=== PATIENT | female | born 1955 | race American Indian/Alaskan Native ===

== ENCOUNTER 2017-09-27 18:12 | Inpatient (IN) | payer SELFPAY ==
[2017-09-27] MEDS ORDERED: NACL 0.9% 500 ML 500 ML IV ONE (18:21)
[2017-09-27] MEDS ORDERED: NACL 0.9% 1000 ML IV ONE (18:25)
[2017-09-27] MEDS ORDERED: TYLENOL PO ONE (18:25)
[2017-09-27 18:50] LABS: Hemoglobin 13.6 gm/dl (10.1-14.3); Mean Corpuscular HGB Conc 33 % (30-34); Mean Corpuscular Hemoglobin 28 pg (28-32); Mean Corpuscular Volume 84 fl (79-97); Platelet Count 109 K/mm3 (140-440); Red Blood Count 4.87 M/mm3 (3.65-5.03); Red Cell Distribution Width 14.1 % (13.2-15.2)
--- NOTE | 2017-09-27 18:51 | Emergency Department Report ---
ED Fever HPI - General Chief Complaint: Fever Stated Complaint: DEHYDRATION Time Seen by Provider: 09/27/17 18:24 Source: patient, old records (no previous [employer] record) Exam Limitations: no limitations - History of Present Illness Initial Comments: 61-year-old female with no significant past medical present to the hospital complaining of fever, generalized weakness and fatigue, shortness of breath, and tired feeling since yesterday. Symptoms started after sleeping in her belly Burner overnight. Patient denies headache, sore throat, neck pain, cough , abdominal pain, nausea, vomiting, diarrhea, or dysuria. Patient states she's been drinking lots of electrolytes and cough even though her appetite has been decreased. She presents with fever, Tachycardia, and hypotension. Pt has a [facility]D in [facility] ED Review of Systems ROS: Stated complaint: DEHYDRATION Other details as noted in HPI Comment: All other systems reviewed and negative ED Past Medical Hx - Past Medical History Previous Medical History?: No - Surgical History Past Surgical History?: No - Social History Smoking Status: Never Smoker Substance Use Type: None ED Physical Exam - General Limitations: No Limitations - Other Other exam information: General: No limitations, patient is alert in no acute distress Head exam: Atraumatic, normocephalic Eyes exam: Normal appearance, pupils equal reactive to light, extraocular movements intact ENT: Dry mucous membranes Neck exam: Normal inspection, full range of motion, no meningismus nontender, no goiter/thyromegaly Respiratory exam: Clear to auscultation bilateral, no wheezes, rales, crackles Cardiovascular: Tachycardic regular rhythm Abdomen: Soft, nondistended, and nontender, with normal bowel sounds, no rebound, or guarding Extremity: Full range of motion normal inspection no deformity Back: Normal Inspection, full range of motion, no tenderness Neurologic: Alert, oriented x3, cranial nerves intact, no motor or sensory deficit Psychiatric: normal affect, normal mood Skin: Warm, dry, intact ED Course Vital Signs 09/27/17 09/27/17 09/27/17 18:17 19:20 19:40 Temperature 103.1 F H 102.1 F H Pulse Rate 131 H 106 H Respiratory 16 28 H 20 Rate Blood Pressure 78/62 Blood Pressure 96/38 [Left] O2 Sat by Pulse 97 96 Oximetry 09/27/17 09/27/17 09/27/17 19:50 20:01 21:12 Temperature 101 F H 99.4 F Pulse Rate 96 H 97 H 90 Respiratory 16 16 16 Rate Blood Pressure Blood Pressure 88/35 103/40 86/38 [Left] O2 Sat by Pulse 99 99 98 Oximetry 09/27/17 09/27/17 21:20 21:29 Temperature Pulse Rate 93 H Respiratory 20 20 Rate Blood Pressure Blood Pressure 94/42 [Left] O2 Sat by Pulse 97 Oximetry - Reevaluation(s) Reevaluation #1: 09/27/17 20:32 pt reports feeling better with ed treatment - Consultations Consultation #1: 09/27/17 19:54 case d/w Dr Sachin pereira, will consult ED Medical Decision Making - Lab Data Result diagrams: 09/27/17 18:29 09/27/17 18:29 - EKG Data -: EKG Interpreted by Nc EKG shows normal: sinus rhythm, axis (qrs 63), QRS complexes (qrsd 106), ST-T waves (no stemi) Rate: tachycardia (107) - EKG Data When compared to previous EKG there are: previous EKG unavailable - Radiology Data Radiology results: report reviewed FINAL REPORT EXAM: XR CHEST 1V AP HISTORY: possible Sepsis TECHNIQUE: AP portable view of the chest PRIORS: None. FINDINGS: Lines, tubes, and devices: N/A Lungs and pleura: Trachea is normal in position. Lungs are clear of infiltrate, pleural effusion, vascular congestion, or pneumothorax. Cardiomediastinal silhouette: Cardiac and mediastinal silhouettes are unremarkable. Other: Bony structures are intact. IMPRESSION: No acute cardiopulmonary process seen. - Medical Decision Making fever + uti. zosyn given. blood and urine cultures pending + sepsis, inc lactic acid, normal ph, low bicarb pt received 30ml/kg bolus of NS addition NS ordered improving hr, bp, and decreasing temp renal failure previous unknown, no previous hx Nephro consulted hypokalemia/hypomagnesemia supplementation ordered elevated ck IVF initiated dehydration likely cause thrombocytopenia previous value unavailable sepsis could be cause elevated coags ? sepsis' mild ast elevation pt to be admitted to the hospitalist service - Differential Diagnosis dehydration, viral syndrome, hyperthyroidism, infection, sepsis Critical Care Time: No Critical care attestation.: If time is entered above; I have spent that time in minutes in the direct care of this critically ill patient, excluding procedure time. ED Disposition Clinical Impression: Sepsis, UTI (urinary tract infection), Acute renal insufficiency, Lactic acid acidosis, Hypokalemia, Hypomagnesemia, Elevated CK, Thrombocytopenia, Coagulopathy Disposition: OP ADMIT IP TO THIS HOSP Is pt being admited?: Yes Condition: Stable Time of Disposition: 21:15 (Dr Vergara/[facility])
[2017-09-27 18:56] LABS: INR 1.31 (0.87-1.13)
[2017-09-27 19:04] LABS: Albumin 3.5 g/dL (3.9-5); Calcium 8.5 mg/dL (8.4-10.2)
--- NOTE | 2017-09-27 19:08 | XRay Report ---
FINAL REPORT EXAM: XR CHEST 1V AP HISTORY: possible Sepsis TECHNIQUE: AP portable view of the chest PRIORS: None. FINDINGS: Lines, tubes, and devices: N/A Lungs and pleura: Trachea is normal in position. Lungs are clear of infiltrate, pleural effusion, vascular congestion, or pneumothorax. Cardiomediastinal silhouette: Cardiac and mediastinal silhouettes are unremarkable. Other: Bony structures are intact. IMPRESSION: No acute cardiopulmonary process seen.
[2017-09-27 19:11] LABS: Free T4 (Free Thyroxine) 1.1 ng/dL (0.76-1.46)
[2017-09-27 19:26] LABS: Amorphous Crystals,Urine Few; Bacteria,Urine 4+ /HPF (Negative); Bilirubin,Urine NEG (Negative); Blood,Urine LG (Negative); Color,Urine Amber (Yellow); Mucus,Urine 3+ /HPF
[2017-09-27 19:29] LABS: Amphetamine Screen,Urine PRESUMPTIVE NEGATIVE; Benzodiazepines Screen,Urine PRESUMPTIVE NEGATIVE; Cannabinoid Screen,Urine PRESUMPTIVE NEGATIVE; Cocaine Screen,Urine PRESUMPTIVE NEGATIVE; Methadone Screen,Urine PRESUMPTIVE NEGATIVE; Opiate Screen,Urine PRESUMPTIVE NEGATIVE
[2017-09-27 19:36] LABS: WBC,Urine > 182.0 /HPF (0.0-6.0)
[2017-09-27] MEDS ORDERED: K-DUR PO ONE (19:49)
[2017-09-27] MEDS ORDERED: MAGNESIUM SULFATE 2GM/50ML 2 GM/50 ML BAG IV ONE (19:49)
[2017-09-27] MEDS ORDERED: NACL 0.9% 1000 ML 1,000 ML IV ONE ×4 (19:53→21:53)
[2017-09-27] MEDS ORDERED: ZOSYN/NS 4.5GM/100ML 4.5 GM/100 ML VIAL IV SCH (20:00)
[2017-09-27 20:05] LABS: Band Neutrophils # (Manual) 2.7 K/mm3; Basophils % (Manual) 0 % (0.0-1.8); Eosinophils % (Manual) 0 % (0.0-4.3); Monocytes % (Manual) 0 % (0.0-7.3); Total Cells Counted 100
[2017-09-27 20:06] LABS: Giant Platelets Few; Ovalocytes Few; Platelet Estimate Consistent w Auto
[2017-09-27] MEDS ORDERED: MOTRIN PO ONE (21:07)
[2017-09-27] MEDS ORDERED: ZOFRAN IV PRN (21:50)
[2017-09-27] MEDS ORDERED: SODIUM CHLORIDE FLUSH SYRINGE 10 ML IV PRN (21:50)
--- NOTE | 2017-09-27 22:01 | History and Physical Report ---
History of Present Illness Date of examination: 09/27/17 History of present illness: 61-year-old woman with no medical history come to the emergency room with complaint of feeling fatigue, decrease energy, fever, nausea vomiting that started on . She has urinary frequency, no dysuria, herbal supplements , NSAID use Review of systems Constitutional: no weight loss, chills, fever Ears, eyes, nose, mouth and throat: no nasal congestion, no nasal discharge, no sinus pressure, no vision change, no red eye. Neck: No neck pain or rigidity. Cardiovascular: no chest pain, palpitations Respiratory: no cough, shortness of breath Gastrointestinal: no abdominal pain hematochezia Genitourinary : no hematuria Musculoskeletal: no joint swelling or muscle ache Integumentary: no rash, no pruritis Neurological: no parathesias, , no focal weakness Endocrine: no cold or heat intolerance, no polyuria or polydipsia Hematologic/Lymphatic: no easy bruising, no easy bleeding, no gland swelling Allergic/Immunologic: no urticaria, no angioedema. PAST MEDICAL HISTORY: None PAST SURGICAL HISTORY: None SOCIAL HISTORY: No alcohol, no drugs, tobacco FAMILY HISTORY: Hypertension Medications and Allergies Allergies Allergy/AdvReac Type Severity Reaction Status Date / Time No Known Allergies Allergy Unverified 09/27/17 18:21 Home Medications Medication Instructions Recorded Confirmed Last Taken Type No Known Home Medications [No 09/27/17 09/27/17 Unknown History Reported Home Medications] Active Meds: Active Medications Acetaminophen (Tylenol) 650 mg PO Q4H PRN PRN Reason: Pain MILD(1-3)/Fever >100.5/LUIS Enoxaparin Sodium (Lovenox) 30 mg SUB-Q QDAY JESSICA Piperacillin Sod/Tazobactam Sod (Zosyn/Ns 4.5gm/100ml) 4.5 gm in 100 mls @ 200 mls/hr IV ONCE JESSICA Stop: 09/27/17 22:00 Last Admin: 09/27/17 19:47 Dose: 200 mls/hr Sodium Chloride (Nacl 0.9% 1000 Ml) 1,000 mls @ 999 mls/hr IV BOLUS ONE Stop: 09/27/17 22:18 Last Admin: 09/27/17 21:28 Dose: 999 mls/hr Sodium Chloride (Nacl 0.9% 1000 Ml) 1,000 mls @ 999 mls/hr IV BOLUS ONE Stop: 09/27/17 22:50 Ceftriaxone Sodium (Rocephin/Ns 1 Gm/50 Ml) 1 gm in 50 mls @ 100 mls/hr IV Q24H [facility]; Protocol Exam - Physical Exam Narrative exam: Gen. appearance: Patient lying in bed, no apparent distress HEENT: Normocephalic, atraumatic, pupils equally round and reactive to light, extraocular movement intact, and no sclericterus,. No JVD or thyromegaly or nodule,neck supple, no carotid bruit ,mucous membranes moist, no exudate or erythema Heart: S1, S2, regular rate and rhythm Lungs: Clear bilaterally, breathing comfortable Abdomen: Positive bowel sounds, non-tender, nondistended, no organomegaly Extremity:no edema cyanosis, clubbing Skin: no rash, dry, warm Neuro: Oriented 3, cranial nerves II-12 intact, speech is fluent, motor and sensory intact - Constitutional Vitals: Temp Pulse Resp BP Pulse Ox 99.4 F 93 H 20 95/43 98 09/27/17 21:12 09/27/17 21:29 09/27/17 21:52 09/27/17 21:40 09/27/17 21:52 Results - Labs CBC & Chem 7: 09/27/17 18:29 09/27/17 18:29 Labs: Abnormal lab results 09/27/17 09/27/17 09/27/17 Range/Units 18:29 18:29 18:29 Plt Count 109 L (140-440) K/mm3 Lymphocytes % (Manual) 1.0 L (13.4-35.0) % Lymphocytes # (Manual) 0.1 L (1.2-5.4) K/mm3 PT 17.0 H (12.2-14.9) Sec. INR 1.31 H (0.87-1.13) APTT (24.2-36.6) Sec. Sodium 135 L (137-145) mmol/L Potassium 3.3 L (3.6-5.0) mmol/L Chloride 95.9 L (98-107) mmol/L Carbon Dioxide 19 L (22-30) mmol/L BUN 43 H (7-17) mg/dL Creatinine 4.1 H (0.7-1.2) mg/dL Glucose 151 H (65-100) mg/dL POC Glucose (70-105) Lactic Acid (0.7-2.0) mmol/L Magnesium (1.7-2.3) mg/dL AST 54 H (5-40) units/L Total Creatine Kinase (30-135) units/L Albumin 3.5 L (3.9-5) g/dL Urine WBC (Auto) (0.0-6.0) /HPF U Epithel Cells (Auto) (0-13.0) /HPF 09/27/17 09/27/17 09/27/17 Range/Units 18:29 18:29 18:29 Plt Count (140-440) K/mm3 Lymphocytes % (Manual) (13.4-35.0) % Lymphocytes # (Manual) (1.2-5.4) K/mm3 PT (12.2-14.9) Sec. INR (0.87-1.13) APTT (24.2-36.6) Sec. Sodium (137-145) mmol/L Potassium (3.6-5.0) mmol/L Chloride (98-107) mmol/L Carbon Dioxide (22-30) mmol/L BUN (7-17) mg/dL Creatinine (0.7-1.2) mg/dL Glucose (65-100) mg/dL POC Glucose (70-105) Lactic Acid 4.60 H* (0.7-2.0) mmol/L Magnesium 1.50 L (1.7-2.3) mg/dL AST (5-40) units/L Total Creatine Kinase 1335 H (30-135) units/L Albumin (3.9-5) g/dL Urine WBC (Auto) (0.0-6.0) /HPF U Epithel Cells (Auto) (0-13.0) /HPF 09/27/17 09/27/17 09/27/17 Range/Units 18:29 18:37 19:11 Plt Count (140-440) K/mm3 Lymphocytes % (Manual) (13.4-35.0) % Lymphocytes # (Manual) (1.2-5.4) K/mm3 PT (12.2-14.9) Sec. INR (0.87-1.13) APTT 38.1 H (24.2-36.6) Sec. Sodium (137-145) mmol/L Potassium (3.6-5.0) mmol/L Chloride (98-107) mmol/L Carbon Dioxide (22-30) mmol/L BUN (7-17) mg/dL Creatinine (0.7-1.2) mg/dL Glucose (65-100) mg/dL POC Glucose 164 H (70-105) Lactic Acid (0.7-2.0) mmol/L Magnesium (1.7-2.3) mg/dL AST (5-40) units/L Total Creatine Kinase (30-135) units/L Albumin (3.9-5) g/dL Urine WBC (Auto) > 182.0 H (0.0-6.0) /HPF U Epithel Cells (Auto) 18.0 H (0-13.0) /HPF - Imaging and Cardiology EKG: image reviewed Chest x-ray: report reviewed Assessment and Plan Assessment Sepsis UTI acute renal failure Thrombocytopenia Plan Admit to medicine Start IV fluid, IV Rocephin, follow cultures Check ultrasound of the kidneys, consult renal DVT prophylaxis
[2017-09-27] MEDS: SODIUM CHLORIDE FLUSH SYRINGE 10 ML IV SCH (22:13)
--- NOTE | 2017-09-27 23:36 | Ultrasound Report ---
FINAL REPORT PROCEDURE: US RENAL BILAT TECHNIQUE: Real-time sonography in multiple planes of the kidneys, ureters and urinary bladder was performed with image documentation. CPT 49232 HISTORY: arf COMPARISON: No prior studies are available for comparison. FINDINGS: RIGHT kidney: Renal parenchymal echotexture is within normal limits. There is mild degree hydronephrosis. No renal calculi are noted.. Length: 13 x 5 x 6 cm. LEFT kidney: Normal echotexture. No focal renal mass, calculus, or hydronephrosis. Length: 13 x 5 x 4cm. Bladder: Normal. IMPRESSION: Mild degree right hydronephrosis is noted..
[2017-09-27] MEDS: NACL 0.9% 1000 ML 1,000 ML IV SCH (23:49)
[2017-09-28] MEDS: TYLENOL PO PRN ×2 (01:29→16:53)
[2017-09-28 07:31] LABS: Hemoglobin 11.7 gm/dl (10.1-14.3); Mean Corpuscular HGB Conc 33 % (30-34); Mean Corpuscular Hemoglobin 28 pg (28-32); Mean Corpuscular Volume 86 fl (79-97); Red Blood Count 4.18 M/mm3 (3.65-5.03); Red Cell Distribution Width 14.6 % (13.2-15.2)
[2017-09-28 07:52] LABS: Platelet Count 70 K/mm3 (140-440)
[2017-09-28 07:55] LABS: Calcium 7.2 mg/dL (8.4-10.2)
--- NOTE | 2017-09-28 08:56 | Consultation ---
History of Present Illness - Reason for Consult Consult date: 09/28/17 acute renal failure - History of Present Illness Mrs. Whalen is a 61-year-old female who presented to the ED with complaint of fever, generalized weakness. She denies nausea, vomiting, diarrhea, cough. Upon arrival to the ED, patient was febrile 103.1 to and hypotensive w/ SBP 70- 90s. Labs were notable for SCr 4.1, lactic acid 4.6. Nephrology consultation requested re: management of RADHA. She denies a prior hx of kidney disease. She denies hematuria, epistaxis, hemoptysis and NSAID use. Medications and Allergies Allergies Allergy/AdvReac Type Severity Reaction Status Date / Time No Known Allergies Allergy Unverified 09/27/17 18:21 Home Medications Medication Instructions Recorded Confirmed Last Taken Type No Known Home Medications [No 09/27/17 09/27/17 Unknown History Reported Home Medications] Active Meds: Active Medications Acetaminophen (Tylenol) 650 mg PO Q4H PRN PRN Reason: Pain MILD(1-3)/Fever >100.5/LUIS Last Admin: 09/28/17 01:29 Dose: 650 mg Ceftriaxone Sodium (Rocephin/Ns 1 Gm/50 Ml) 1 gm in 50 mls @ 100 mls/hr IV Q24H JESSICA; Protocol Sodium Chloride (Nacl 0.9% 1000 Ml) 1,000 mls @ 150 mls/hr IV DIRECT JESSICA Last Admin: 09/27/17 23:49 Dose: 150 mls/hr Ondansetron HCl (Zofran) 4 mg IV Q4H PRN PRN Reason: Nausea And Vomiting Last Admin: 09/28/17 01:29 Dose: 4 mg Sodium Chloride (Sodium Chloride Flush Syringe 10 Ml) 10 ml IV BID JESSICA Last Admin: 09/27/17 22:13 Dose: 10 ml Sodium Chloride (Sodium Chloride Flush Syringe 10 Ml) 10 ml IV PRN PRN PRN Reason: LINE FLUSH Exam - Vital Signs Vital signs: Vital Signs Temp Pulse Resp BP Pulse Ox 103.1 F H 131 H 16 78/62 97 09/27/17 18:17 09/27/17 18:17 09/27/17 18:17 09/27/17 18:17 09/27/17 18:17 Results - Lab Results 09/28/17 07:15 09/28/17 07:15 Most recent lab results Calcium 7.2 mg/dL (8.4-10.2) L D 09/28/17 07:15 Magnesium 1.50 mg/dL (1.7-2.3) L 09/27/17 18:29 Assessment and Plan Impression: * Nonoliguric RADHA secondary to prerenal azotemia due to hypoperfusion vs sepsis related ATN * Sepsis * Metabolic acidosis secondary to lactic acidosis * UTI * Hypokalemia Plan: * No acute indication for renal replacement therapy. Renal function improved w / conservative management * Continue IVF - will change to 1/2 NS with 75meq NaBicarb * Obtain urine lytes * Abx per primary team * Replete lytes prn - note order for KCl * Culture data pending * Avoid potential nephrotoxins * Dose medications for renal function * Liberalized diet
[2017-09-28] MEDS ORDERED: K-DUR PO ONE ×2 (09:14→11:49)
[2017-09-28] MEDS: SODIUM CHLORIDE FLUSH SYRINGE 10 ML IV SCH (10:00)
[2017-09-28] MEDS ORDERED: LOVENOX SUB-Q SCH (10:00)
[2017-09-28 10:40] LABS: Band Neutrophils # (Manual) 1.7 K/mm3; Basophils % (Manual) 0 % (0.0-1.8); Eosinophils % (Manual) 0 % (0.0-4.3); Total Cells Counted 100
[2017-09-28 10:41] LABS: Dohle Bodies Few; Toxic Vacuolation Few
[2017-09-28 10:42] LABS: Anisocytosis 1+; Burr Cells 1+; Large Platelets Few; Platelet Estimate Cons; Poikilocytosis 1+
[2017-09-28] MEDS: ROCEPHIN/NS 1 GM/50 ML 1 GM/50 ML BAG IV SCH (11:15)
[2017-09-28] MEDS: FLAGYL 500 MG/100 ML 500 MG/100 ML BAG IV SCH ×2 (16:54→22:15)
[2017-09-28] MEDS: NACL 0.9% 1000 ML 1,000 ML IV SCH (16:54)
--- NOTE | 2017-09-28 17:16 | Progress Note ---
Assessment and Plan Assessment and plan: 61-year-old female presented to the emergency department with complaints of fever and generalized weakness. Patient is also complaining diarrhea. Sepsis secondary to UTI - Patient was treated according to sepsis protocol with IV fluids and antibiotics - Urine and blood culture is pending Diarrhea - I put her empirically with IV Flagyl - Fluid replacement - Stool for C. difficile ordered Acute kidney failure - Nephrology consulted - getting worse. - Continue IV fluids Metabolic acidosis - Half normal saline with sodium bicarbonate - will monitor Hypokalemia - Repleted DVT prophylaxis - On heparin Disposition - Admitted to inpatient care. History Interval history: Patient was seen and divided this morning, she is complaining headache. She has diarrhea 3 times. Hospitalist Physical - Physical exam Narrative exam: Not in cardiopulmonary distress. The patient appeared well nourished and normally developed. Vital signs as documented. Head exam is unremarkable. No scleral icterus . Neck is without jugular venous distension, thyromegaly, or carotid bruits. Lungs are clear to auscultation. Cardiac exam reveals regular rate and Rhythm. First and second heart sounds normal. No murmurs, rubs or gallops. Abdominal exam reveals normal bowel sounds, no masses, no organomegaly and no aortic enlargement. Extremities are nonedematous and both femoral and pedal pulses are normal. PODIATRIC SURGEON: Alert and oriented 3. No focal weakness. - Constitutional Vitals: Temp Pulse Resp BP Pulse Ox 98.7 F 79 18 107/47 98 09/28/17 11:40 09/28/17 14:00 09/28/17 14:00 09/28/17 14:00 09/28/17 14:00 Results - Labs CBC & Chem 7: 09/28/17 07:15 09/29/17 05:31 Labs: Laboratory Last Values WBC 13.2 K/mm3 (4.5-11.0) H 09/28/17 07:15 RBC 4.18 M/mm3 (3.65-5.03) 09/28/17 07:15 Hgb 11.7 gm/dl (10.1-14.3) 09/28/17 07:15 Hct 36.0 % (30.3-42.9) 09/28/17 07:15 MCV 86 fl (79-97) 09/28/17 07:15 MCH 28 pg (28-32) 09/28/17 07:15 MCHC 33 % (30-34) 09/28/17 07:15 RDW 14.6 % (13.2-15.2) 09/28/17 07:15 Plt Count 70 K/mm3 (140-440) L 09/28/17 07:15 Eos % (Auto) Dolly Driver 09/27/17 18:29 Add Manual Diff Complete 09/28/17 07:15 Total Counted 100 09/28/17 07:15 Seg Neuts % (Manual) 73.0 % (40.0-70.0) H 09/28/17 07:15 Band Neutrophils % 13.0 % 09/28/17 07:15 Lymphocytes % (Manual) 2.0 % (13.4-35.0) L 09/28/17 07:15 Reactive Lymphs % (Man) 0 % 09/28/17 07:15 Monocytes % (Manual) 1.0 % (0.0-7.3) 09/28/17 07:15 Eosinophils % (Manual) 0 % (0.0-4.3) 09/28/17 07:15 Basophils % (Manual) 0 % (0.0-1.8) 09/28/17 07:15 Metamyelocytes % 11.0 % 09/28/17 07:15 Myelocytes % 0 % 09/28/17 07:15 Promyelocytes % 0 % 09/28/17 07:15 Blast Cells % 0 % 09/28/17 07:15 Nucleated RBC % Not Reportable 09/28/17 07:15 Seg Neutrophils # Man 9.6 K/mm3 (1.8-7.7) H 09/28/17 07:15 Band Neutrophils # 1.7 K/mm3 09/28/17 07:15 Lymphocytes # (Manual) 0.3 K/mm3 (1.2-5.4) L 09/28/17 07:15 Abs React Lymphs (Man) 0.0 K/mm3 09/28/17 07:15 Monocytes # (Manual) 0.1 K/mm3 (0.0-0.8) 09/28/17 07:15 Eosinophils # (Manual) 0.0 K/mm3 (0.0-0.4) 09/28/17 07:15 Basophils # (Manual) 0.0 K/mm3 (0.0-0.1) 09/28/17 07:15 Metamyelocytes # 1.5 K/mm3 09/28/17 07:15 Myelocytes # 0.0 K/mm3 09/28/17 07:15 Promyelocytes # 0.0 K/mm3 09/28/17 07:15 Blast Cells # 0.0 K/mm3 09/28/17 07:15 WBC Morphology Not Reportable 09/28/17 07:15 Hypersegmented Neuts Not Reportable 09/28/17 07:15 Hyposegmented Neuts Not Reportable 09/28/17 07:15 Hypogranular Neuts Not Reportable 09/28/17 07:15 Smudge Cells Not Reportable 09/28/17 07:15 Toxic Granulation Not Reportable 09/28/17 07:15 Toxic Vacuolation Few 09/28/17 07:15 Dohle Bodies Few 09/28/17 07:15 Pelger-Huet Anomaly Not Reportable 09/28/17 07:15 Parisa Rods Not Reportable 09/28/17 07:15 Platelet Estimate Cons 09/28/17 07:15 Clumped Platelets Not Reportable 09/28/17 07:15 Plt Clumps, EDTA Not Reportable 09/28/17 07:15 Large Platelets Few 09/28/17 07:15 Giant Platelets Not Reportable 09/28/17 07:15 Platelet Satelliting Not Reportable 09/28/17 07:15 Plt Morphology Comment Not Reportable 09/28/17 07:15 RBC Morphology Not Reportable 09/28/17 07:15 Dimorphic RBCs Not Reportable 09/28/17 07:15 Polychromasia Not Reportable 09/28/17 07:15 Hypochromasia Not Reportable 09/28/17 07:15 Poikilocytosis 1+ 09/28/17 07:15 Anisocytosis 1+ 09/28/17 07:15 Microcytosis Not Reportable 09/28/17 07:15 Macrocytosis Not Reportable 09/28/17 07:15 Spherocytes Not Reportable 09/28/17 07:15 Pappenheimer Bodies Not Reportable 09/28/17 07:15 Sickle Cells Not Reportable 09/28/17 07:15 Target Cells Not Reportable 09/28/17 07:15 Tear Drop Cells Not Reportable 09/28/17 07:15 Ovalocytes Not Reportable 09/28/17 07:15 Helmet Cells Not Reportable 09/28/17 07:15 [place] Bodies Not Reportable 09/28/17 07:15 [place] Rings Not Reportable 09/28/17 07:15 Jovany Cells 1+ 09/28/17 07:15 Bite Cells Not Reportable 09/28/17 07:15 Crenated Cell Not Reportable 09/28/17 07:15 Elliptocytes Not Reportable 09/28/17 07:15 Acanthocytes (Spur) Not Reportable 09/28/17 07:15 Rouleaux Not Reportable 09/28/17 07:15 Hemoglobin C Crystals Not Reportable 09/28/17 07:15 Schistocytes Not Reportable 09/28/17 07:15 Malaria parasites Not Reportable 09/28/17 07:15 Narinder Bodies Not Reportable 09/28/17 07:15 Hem Pathologist Commnt No 09/28/17 07:15 PT 17.0 Sec. (12.2-14.9) H 09/27/17 18:29 INR 1.31 (0.87-1.13) H 09/27/17 18:29 APTT 38.1 Sec. (24.2-36.6) H 09/27/17 18:29 VBG pH 7.376 (7.320-7.420) 09/27/17 18:29 Sodium 144 mmol/L (137-145) D 09/28/17 07:15 Potassium 3.1 mmol/L (3.6-5.0) L 09/28/17 07:15 Chloride 113.5 mmol/L (98-107) H 09/28/17 07:15 Carbon Dioxide 12 mmol/L (22-30) L D 09/28/17 07:15 Anion Gap 22 mmol/L 09/28/17 07:15 BUN 36 mg/dL (7-17) H 09/28/17 07:15 Creatinine 2.8 mg/dL (0.7-1.2) H 09/28/17 07:15 Estimated GFR 21 ml/min 09/28/17 07:15 BUN/Creatinine Ratio 13 % 09/28/17 07:15 Glucose 86 mg/dL (65-100) 09/28/17 07:15 POC Glucose 164 (70-105) H 09/27/17 18:37 Lactic Acid 1.90 mmol/L (0.7-2.0) 09/27/17 22:01 Calcium 7.2 mg/dL (8.4-10.2) L D 09/28/17 07:15 Magnesium 1.50 mg/dL (1.7-2.3) L 09/27/17 18:29 Total Bilirubin 0.80 mg/dL (0.1-1.2) 09/27/17 18:29 AST 54 units/L (5-40) H 09/27/17 18:29 ALT 15 units/L (7-56) 09/27/17 18:29 Alkaline Phosphatase 126 units/L (35-129) 09/27/17 18:29 Total Creatine Kinase 1335 units/L (30-135) H 09/27/17 18:29 Total Protein 6.6 g/dL (6.3-8.2) 09/27/17 18:29 Albumin 3.5 g/dL (3.9-5) L 09/27/17 18:29 Albumin/Globulin Ratio 1.1 % 09/27/17 18:29 TSH 0.868 mlU/mL (0.270-4.200) 09/27/17 18:34 Free T4 1.10 ng/dL (0.76-1.46) 09/27/17 18:34 Urine Color Adali (Yellow) 09/27/17 19:11 Urine Turbidity Turbid (Clear) 09/27/17 19:11 Urine pH 5.0 (5.0-7.0) 09/27/17 19:11 Ur Specific [place] 1.015 (1.003-1.030) 09/27/17 19:11 Urine Protein 100 mg/dl mg/dL (Negative) 09/27/17 19:11 Urine Glucose (UA) Neg mg/dL (Negative) 09/27/17 19:11 Urine Ketones Neg mg/dL (Negative) 09/27/17 19:11 Urine Blood Lg (Negative) 09/27/17 19:11 Urine Nitrite Neg (Negative) 09/27/17 19:11 Urine Bilirubin Neg (Negative) 09/27/17 19:11 Urine Urobilinogen 2.0 mg/dL (<2.0) 09/27/17 19:11 Ur Leukocyte Esterase Lg (Negative) 09/27/17 19:11 Urine WBC (Auto) > 182.0 /HPF (0.0-6.0) H 09/27/17 19:11 Urine RBC (Auto) 11.0 /HPF (0.0-6.0) 09/27/17 19:11 U Epithel Cells (Auto) 18.0 /HPF (0-13.0) H 09/27/17 19:11 Urine Bacteria (Auto) 4+ /HPF (Negative) 09/27/17 19:11 Urine WBC Clumps 3+ /HPF 09/27/17 19:11 Amorphous Crystals Few 09/27/17 19:11 Urine Mucus 3+ /HPF 09/27/17 19:11 Urine Opiates Screen Presumptive negative 09/27/17 19:11 Urine Methadone Screen Presumptive negative 09/27/17 19:11 Ur Barbiturates Screen Presumptive negative 09/27/17 19:11 Ur Phencyclidine Scrn Presumptive negative 09/27/17 19:11 Ur Amphetamines Screen Presumptive negative 09/27/17 19:11 U Benzodiazepines Scrn Presumptive negative 09/27/17 19:11 Urine Cocaine Screen Presumptive negative 09/27/17 19:11 U Marijuana (THC) Screen Presumptive negative 09/27/17 19:11 Drugs of Abuse Note Disclamer 09/27/17 19:11
[2017-09-28] MEDS ORDERED: PERCOCET 5/325 PO PRN (17:25)
[2017-09-28] MEDS ORDERED: NACL 0.45% 1000 ML 1,000 ML with SODIUM BICARBONATE 75 MEQ IV SCH (18:00)
[2017-09-28] MEDS: HEPARIN SUB-Q SCH (22:16)
[2017-09-29] MEDS: FLAGYL 500 MG/100 ML 500 MG/100 ML BAG IV SCH ×3 (06:00→22:23)
[2017-09-29] MEDS: SODIUM CHLORIDE FLUSH SYRINGE 10 ML IV SCH ×3 (06:01→22:25)
[2017-09-29] MEDS ORDERED: K-DUR PO ONE (08:00)
[2017-09-29] MEDS: ROCEPHIN/NS 1 GM/50 ML 1 GM/50 ML BAG IV SCH (09:43)
[2017-09-29] MEDS: HEPARIN SUB-Q SCH ×2 (09:44→22:23)
--- NOTE | 2017-09-29 10:24 | Progress Note ---
Assessment and Plan Assessment and plan: 61-year-old female presented to the emergency department with complaints of fever and generalized weakness. Patient is also complaining diarrhea. Sepsis secondary to UTI - Patient was treated according to sepsis protocol with IV fluids and antibiotics - Urine and blood culture grew gram positive rods, repeat blood culture, ID consult Diarrhea - I put her empirically with IV Flagyl - Fluid replacement - Stool for C. difficile ordered Acute kidney failure - Nephrology consulted - getting worse. - Continue IV fluids Metabolic acidosis - Half normal saline with sodium bicarbonate - will monitor Hypokalemia - Repleted DVT prophylaxis - On heparin Disposition - continue inpatient care. History Interval history: Patient was seen and divided this morning, she is complaining headache. She has diarrhea 3 times. Hospitalist Physical - Physical exam Narrative exam: Not in cardiopulmonary distress. The patient appeared well nourished and normally developed. Vital signs as documented. Head exam is unremarkable. No scleral icterus . Neck is without jugular venous distension, thyromegaly, or carotid bruits. Lungs are clear to auscultation. Cardiac exam reveals regular rate and Rhythm. First and second heart sounds normal. No murmurs, rubs or gallops. Abdominal exam reveals normal bowel sounds, no masses, no organomegaly and no aortic enlargement. Extremities are nonedematous and both femoral and pedal pulses are normal. DIRECTOR OF CARDIOLOGY SERVICE LINE: Alert and oriented 3. No focal weakness. - Constitutional Vitals: Temp Pulse Resp BP Pulse Ox 98.7 F 78 18 134/70 94 09/29/17 06:15 09/29/17 06:15 09/29/17 06:15 09/29/17 06:15 09/29/17 06:15 Results - Labs CBC & Chem 7: 09/28/17 07:15 09/29/17 05:31 Labs: Laboratory Last Values WBC 13.2 K/mm3 (4.5-11.0) H 09/28/17 07:15 RBC 4.18 M/mm3 (3.65-5.03) 09/28/17 07:15 Hgb 11.7 gm/dl (10.1-14.3) 09/28/17 07:15 Hct 36.0 % (30.3-42.9) 09/28/17 07:15 MCV 86 fl (79-97) 09/28/17 07:15 MCH 28 pg (28-32) 09/28/17 07:15 MCHC 33 % (30-34) 09/28/17 07:15 RDW 14.6 % (13.2-15.2) 09/28/17 07:15 Plt Count 70 K/mm3 (140-440) L 09/28/17 07:15 Eos % (Auto) Plate Painter 09/27/17 18:29 Add Manual Diff Complete 09/28/17 07:15 Total Counted 100 09/28/17 07:15 Seg Neuts % (Manual) 73.0 % (40.0-70.0) H 09/28/17 07:15 Band Neutrophils % 13.0 % 09/28/17 07:15 Lymphocytes % (Manual) 2.0 % (13.4-35.0) L 09/28/17 07:15 Reactive Lymphs % (Man) 0 % 09/28/17 07:15 Monocytes % (Manual) 1.0 % (0.0-7.3) 09/28/17 07:15 Eosinophils % (Manual) 0 % (0.0-4.3) 09/28/17 07:15 Basophils % (Manual) 0 % (0.0-1.8) 09/28/17 07:15 Metamyelocytes % 11.0 % 09/28/17 07:15 Myelocytes % 0 % 09/28/17 07:15 Promyelocytes % 0 % 09/28/17 07:15 Blast Cells % 0 % 09/28/17 07:15 Nucleated RBC % Not Reportable 09/28/17 07:15 Seg Neutrophils # Man 9.6 K/mm3 (1.8-7.7) H 09/28/17 07:15 Band Neutrophils # 1.7 K/mm3 09/28/17 07:15 Lymphocytes # (Manual) 0.3 K/mm3 (1.2-5.4) L 09/28/17 07:15 Abs React Lymphs (Man) 0.0 K/mm3 09/28/17 07:15 Monocytes # (Manual) 0.1 K/mm3 (0.0-0.8) 09/28/17 07:15 Eosinophils # (Manual) 0.0 K/mm3 (0.0-0.4) 09/28/17 07:15 Basophils # (Manual) 0.0 K/mm3 (0.0-0.1) 09/28/17 07:15 Metamyelocytes # 1.5 K/mm3 09/28/17 07:15 Myelocytes # 0.0 K/mm3 09/28/17 07:15 Promyelocytes # 0.0 K/mm3 09/28/17 07:15 Blast Cells # 0.0 K/mm3 09/28/17 07:15 WBC Morphology Not Reportable 09/28/17 07:15 Hypersegmented Neuts Not Reportable 09/28/17 07:15 Hyposegmented Neuts Not Reportable 09/28/17 07:15 Hypogranular Neuts Not Reportable 09/28/17 07:15 Smudge Cells Not Reportable 09/28/17 07:15 Toxic Granulation Not Reportable 09/28/17 07:15 Toxic Vacuolation Few 09/28/17 07:15 Dohle Bodies Few 09/28/17 07:15 Pelger-Huet Anomaly Not Reportable 09/28/17 07:15 Parisa Rods Not Reportable 09/28/17 07:15 Platelet Estimate Cons 09/28/17 07:15 Clumped Platelets Not Reportable 09/28/17 07:15 Plt Clumps, EDTA Not Reportable 09/28/17 07:15 Large Platelets Few 09/28/17 07:15 Giant Platelets Not Reportable 09/28/17 07:15 Platelet Satelliting Not Reportable 09/28/17 07:15 Plt Morphology Comment Not Reportable 09/28/17 07:15 RBC Morphology Not Reportable 09/28/17 07:15 Dimorphic RBCs Not Reportable 09/28/17 07:15 Polychromasia Not Reportable 09/28/17 07:15 Hypochromasia Not Reportable 09/28/17 07:15 Poikilocytosis 1+ 09/28/17 07:15 Anisocytosis 1+ 09/28/17 07:15 Microcytosis Not Reportable 09/28/17 07:15 Macrocytosis Not Reportable 09/28/17 07:15 Spherocytes Not Reportable 09/28/17 07:15 Pappenheimer Bodies Not Reportable 09/28/17 07:15 Sickle Cells Not Reportable 09/28/17 07:15 Target Cells Not Reportable 09/28/17 07:15 Tear Drop Cells Not Reportable 09/28/17 07:15 Ovalocytes Not Reportable 09/28/17 07:15 Helmet Cells Not Reportable 09/28/17 07:15 [place] Bodies Not Reportable 09/28/17 07:15 [place] Rings Not Reportable 09/28/17 07:15 [place] Cells 1+ 09/28/17 07:15 Bite Cells Not Reportable 09/28/17 07:15 Crenated Cell Not Reportable 09/28/17 07:15 Elliptocytes Not Reportable 09/28/17 07:15 Acanthocytes (Spur) Not Reportable 09/28/17 07:15 Rouleaux Not Reportable 09/28/17 07:15 Hemoglobin C Crystals Not Reportable 09/28/17 07:15 Schistocytes Not Reportable 09/28/17 07:15 Malaria parasites Not Reportable 09/28/17 07:15 Narinder Bodies Not Reportable 09/28/17 07:15 Hem Pathologist Commnt No 09/28/17 07:15 PT 17.0 Sec. (12.2-14.9) H 09/27/17 18:29 INR 1.31 (0.87-1.13) H 09/27/17 18:29 APTT 38.1 Sec. (24.2-36.6) H 09/27/17 18:29 VBG pH 7.376 (7.320-7.420) 09/27/17 18:29 Sodium 145 mmol/L (137-145) 09/29/17 05:31 Potassium 3.2 mmol/L (3.6-5.0) L 09/29/17 05:31 Chloride 111.0 mmol/L (98-107) H 09/29/17 05:31 Carbon Dioxide 14 mmol/L (22-30) L 09/29/17 05:31 Anion Gap 23 mmol/L 09/29/17 05:31 BUN 26 mg/dL (7-17) H 09/29/17 05:31 Creatinine 1.8 mg/dL (0.7-1.2) H 09/29/17 05:31 Estimated GFR 35 ml/min 09/29/17 05:31 BUN/Creatinine Ratio 14 % 09/29/17 05:31 Glucose 118 mg/dL (65-100) H 09/29/17 05:31 POC Glucose 164 (70-105) H 09/27/17 18:37 Lactic Acid 1.90 mmol/L (0.7-2.0) 09/27/17 22:01 Calcium 8.0 mg/dL (8.4-10.2) L 09/29/17 05:31 Magnesium 1.50 mg/dL (1.7-2.3) L 09/27/17 18:29 Total Bilirubin 0.80 mg/dL (0.1-1.2) 09/27/17 18:29 AST 54 units/L (5-40) H 09/27/17 18:29 ALT 15 units/L (7-56) 09/27/17 18:29 Alkaline Phosphatase 126 units/L (35-129) 09/27/17 18:29 Total Creatine Kinase 1335 units/L (30-135) H 09/27/17 18:29 Total Protein 6.6 g/dL (6.3-8.2) 09/27/17 18:29 Albumin 3.5 g/dL (3.9-5) L 09/27/17 18:29 Albumin/Globulin Ratio 1.1 % 09/27/17 18:29 TSH 0.868 mlU/mL (0.270-4.200) 09/27/17 18:34 Free T4 1.10 ng/dL (0.76-1.46) 09/27/17 18:34 Urine Color Adali (Yellow) 09/27/17 19:11 Urine Turbidity Turbid (Clear) 09/27/17 19:11 Urine pH 5.0 (5.0-7.0) 09/27/17 19:11 Ur Specific [place] 1.015 (1.003-1.030) 09/27/17 19:11 Urine Protein 100 mg/dl mg/dL (Negative) 09/27/17 19:11 Urine Glucose (UA) Neg mg/dL (Negative) 09/27/17 19:11 Urine Ketones Neg mg/dL (Negative) 09/27/17 19:11 Urine Blood Lg (Negative) 09/27/17 19:11 Urine Nitrite Neg (Negative) 09/27/17 19:11 Urine Bilirubin Neg (Negative) 09/27/17 19:11 Urine Urobilinogen 2.0 mg/dL (<2.0) 09/27/17 19:11 Ur Leukocyte Esterase Lg (Negative) 09/27/17 19:11 Urine WBC (Auto) > 182.0 /HPF (0.0-6.0) H 09/27/17 19:11 Urine RBC (Auto) 11.0 /HPF (0.0-6.0) 09/27/17 19:11 U Epithel Cells (Auto) 18.0 /HPF (0-13.0) H 09/27/17 19:11 Urine Bacteria (Auto) 4+ /HPF (Negative) 09/27/17 19:11 Urine WBC Clumps 3+ /HPF 09/27/17 19:11 Amorphous Crystals Few 09/27/17 19:11 Urine Mucus 3+ /HPF 09/27/17 19:11 Urine Opiates Screen Presumptive negative 09/27/17 19:11 Urine Methadone Screen Presumptive negative 09/27/17 19:11 Ur Barbiturates Screen Presumptive negative 09/27/17 19:11 Ur Phencyclidine Scrn Presumptive negative 09/27/17 19:11 Ur Amphetamines Screen Presumptive negative 09/27/17 19:11 U Benzodiazepines Scrn Presumptive negative 09/27/17 19:11 Urine Cocaine Screen Presumptive negative 09/27/17 19:11 U Marijuana (THC) Screen Presumptive negative 09/27/17 19:11 Drugs of Abuse Note Disclamer 09/27/17 19:11
[2017-09-29] MEDS: SODIUM BICARBONATE 75 MEQ in NACL 0.45% 1000 ML 1,000 ML IV SCH ×2 (12:42→22:24)
--- NOTE | 2017-09-29 13:26 | Progress Note ---
Assessment and Plan Impression: * Nonoliguric RADHA secondary to prerenal azotemia due to hypoperfusion vs sepsis related ATN * Sepsis * GNR bacteremia * Metabolic acidosis secondary to lactic acidosis * UTI * Hypokalemia Plan: * Renal function improved * Continue IVF * Abx per primary team * ID/sens pending * Replete lytes prn * Avoid potential nephrotoxins * Dose medications for renal function Subjective Date of service: 09/29/17 Interval history: Patient reports that she is feeling better. Objective - Vital Signs Vital signs: Vital Signs - 12hr 09/29/17 09/29/17 09/29/17 06:15 10:00 12:12 Temperature 98.7 F 99.9 F H Pulse Rate 78 85 Respiratory 18 20 20 Rate Blood Pressure 134/70 136/69 O2 Sat by Pulse 94 92 Oximetry - General Appearance General appearance: well-developed, well-nourished EENT: ATNC Respiratory: Present: Clear to Ascultation Cardiology: regular, S1S2 Gastrointestinal: normal, no tenderness, no distended Integumentary: no rash, warm and dry Neurologic: no focal deficit, alert and oriented x3 Musculoskeletal: other (no edema) Psychiatric: cooperative - Lab 09/28/17 07:15 09/29/17 05:31 Most recent lab results Calcium 8.0 mg/dL (8.4-10.2) L 09/29/17 05:31 Magnesium 1.50 mg/dL (1.7-2.3) L 09/27/17 18:29
[2017-09-30] MEDS: FLAGYL 500 MG/100 ML 500 MG/100 ML BAG IV SCH ×2 (06:08→14:31)
[2017-09-30 06:52] LABS: Basophils % (Auto) 0.3 % (0.0-1.8); Eosinophils % (Auto) 0.4 % (0.0-4.3); Hemoglobin 12.5 gm/dl (10.1-14.3); Lymphocytes # (Auto) 0.9 K/mm3 (1.2-5.4); Lymphocytes % (Auto) 7.2 % (13.4-35.0); Mean Corpuscular HGB Conc 34 % (30-34); Mean Corpuscular Hemoglobin 28 pg (28-32); Mean Corpuscular Volume 83 fl (79-97); Monocytes # (Auto) 0.7 K/mm3 (0.0-0.8); Monocytes % (Auto) 5.5 % (0.0-7.3); Red Blood Count 4.48 M/mm3 (3.65-5.03); Red Cell Distribution Width 14.3 % (13.2-15.2)
[2017-09-30 07:06] LABS: BUN/Creatinine Ratio 15; Blood Urea Nitrogen 17 mg/dL (7-17); Calcium 7.7 mg/dL (8.4-10.2); Hemolysis Index 12
[2017-09-30 07:07] LABS: Platelet Count 51 K/mm3 (140-440)
[2017-09-30] MEDS: SODIUM BICARBONATE 75 MEQ in NACL 0.45% 1000 ML 1,000 ML IV SCH (08:19)
--- NOTE | 2017-09-30 08:50 | Progress Note ---
Assessment and Plan Assessment and plan: Sepsis secondary to UTI - Patient was treated according to sepsis protocol with IV fluids and antibiotics - Urine and blood culture has gram-negative rods likely Escherichia coli for both, essentially pansensitive, ID consulted Diarrhea - I put her empirically with IV Flagyl - Fluid replacement - Stool for C. difficile ordered Acute kidney failure - Nephrology following - Nonoliguric RADHA secondary to prerenal azotemia due to hypoperfusion vs sepsis related ATN - Continue IV fluids Metabolic acidosis - Half normal saline with sodium bicarbonate - will monitor Hypokalemia - Replete DVT prophylaxis - On heparin Disposition - continue inpatient care. History Interval history: No new issues overnight. Hospitalist Physical - Constitutional Vitals: Temp Pulse Resp BP Pulse Ox 99.4 F 78 18 120/65 92 09/30/17 05:56 09/30/17 05:56 09/30/17 05:56 09/30/17 05:56 09/30/17 05:56 General appearance: Present: no acute distress, well-nourished - EENT Eyes: Present: PERRL, EOM intact ENT: hearing intact, clear oral mucosa, dentition normal - Neck Neck: Present: supple, normal ROM - Respiratory Respiratory effort: normal Respiratory: bilateral: CTA - Cardiovascular Rhythm: regular Heart Sounds: Present: S1 & S2. Absent: gallop, rub - Extremities Extremities: no ischemia, No edema, Full ROM - Abdominal General gastrointestinal: soft, non-tender, non-distended, normal bowel sounds - Integumentary Integumentary: Present: clear, warm, dry - Neurologic Neurologic: CNII-XII intact, moves all extremities Results - Labs CBC & Chem 7: 09/30/17 05:58 09/30/17 05:58 Labs: Laboratory Last Values WBC 12.2 K/mm3 (4.5-11.0) H 09/30/17 05:58 RBC 4.48 M/mm3 (3.65-5.03) 09/30/17 05:58 Hgb 12.5 gm/dl (10.1-14.3) 09/30/17 05:58 Hct 37.0 % (30.3-42.9) 09/30/17 05:58 MCV 83 fl (79-97) 09/30/17 05:58 MCH 28 pg (28-32) 09/30/17 05:58 MCHC 34 % (30-34) 09/30/17 05:58 RDW 14.3 % (13.2-15.2) 09/30/17 05:58 Plt Count 51 K/mm3 (140-440) L 09/30/17 05:58 Lymph % (Auto) 7.2 % (13.4-35.0) L 09/30/17 05:58 [place] % (Auto) 5.5 % (0.0-7.3) 09/30/17 05:58 Eos % (Auto) 0.4 % (0.0-4.3) 09/30/17 05:58 Baso % (Auto) 0.3 % (0.0-1.8) 09/30/17 05:58 Lymph # 0.9 K/mm3 (1.2-5.4) L 09/30/17 05:58 [place] # 0.7 K/mm3 (0.0-0.8) 09/30/17 05:58 Eos # 0.0 K/mm3 (0.0-0.4) 09/30/17 05:58 Baso # 0.0 K/mm3 (0.0-0.1) 09/30/17 05:58 Add Manual Diff Complete 09/28/17 07:15 Total Counted 100 09/28/17 07:15 Seg Neutrophils % 86.6 % (40.0-70.0) H 09/30/17 05:58 Seg Neuts % (Manual) 73.0 % (40.0-70.0) H 09/28/17 07:15 Band Neutrophils % 13.0 % 09/28/17 07:15 Lymphocytes % (Manual) 2.0 % (13.4-35.0) L 09/28/17 07:15 Reactive Lymphs % (Man) 0 % 09/28/17 07:15 Monocytes % (Manual) 1.0 % (0.0-7.3) 09/28/17 07:15 Eosinophils % (Manual) 0 % (0.0-4.3) 09/28/17 07:15 Basophils % (Manual) 0 % (0.0-1.8) 09/28/17 07:15 Metamyelocytes % 11.0 % 09/28/17 07:15 Myelocytes % 0 % 09/28/17 07:15 Promyelocytes % 0 % 09/28/17 07:15 Blast Cells % 0 % 09/28/17 07:15 Nucleated RBC % Not Reportable 09/28/17 07:15 Seg Neutrophils # 10.5 K/mm3 (1.8-7.7) H 09/30/17 05:58 Seg Neutrophils # Man 9.6 K/mm3 (1.8-7.7) H 09/28/17 07:15 Band Neutrophils # 1.7 K/mm3 09/28/17 07:15 Lymphocytes # (Manual) 0.3 K/mm3 (1.2-5.4) L 09/28/17 07:15 Abs React Lymphs (Man) 0.0 K/mm3 09/28/17 07:15 Monocytes # (Manual) 0.1 K/mm3 (0.0-0.8) 09/28/17 07:15 Eosinophils # (Manual) 0.0 K/mm3 (0.0-0.4) 09/28/17 07:15 Basophils # (Manual) 0.0 K/mm3 (0.0-0.1) 09/28/17 07:15 Metamyelocytes # 1.5 K/mm3 09/28/17 07:15 Myelocytes # 0.0 K/mm3 09/28/17 07:15 Promyelocytes # 0.0 K/mm3 09/28/17 07:15 Blast Cells # 0.0 K/mm3 09/28/17 07:15 WBC Morphology Not Reportable 09/28/17 07:15 Hypersegmented Neuts Not Reportable 09/28/17 07:15 Hyposegmented Neuts Not Reportable 09/28/17 07:15 Hypogranular Neuts Not Reportable 09/28/17 07:15 Smudge Cells Not Reportable 09/28/17 07:15 Toxic Granulation Not Reportable 09/28/17 07:15 Toxic Vacuolation Few 09/28/17 07:15 Dohle Bodies Few 09/28/17 07:15 Pelger-Huet Anomaly Not Reportable 09/28/17 07:15 Parisa Rods Not Reportable 09/28/17 07:15 Platelet Estimate Cons 09/28/17 07:15 Clumped Platelets Not Reportable 09/28/17 07:15 Plt Clumps, EDTA Not Reportable 09/28/17 07:15 Large Platelets Few 09/28/17 07:15 Giant Platelets Not Reportable 09/28/17 07:15 Platelet Satelliting Not Reportable 09/28/17 07:15 Plt Morphology Comment Not Reportable 09/28/17 07:15 RBC Morphology Not Reportable 09/28/17 07:15 Dimorphic RBCs Not Reportable 09/28/17 07:15 Polychromasia Not Reportable 09/28/17 07:15 Hypochromasia Not Reportable 09/28/17 07:15 Poikilocytosis 1+ 09/28/17 07:15 Anisocytosis 1+ 09/28/17 07:15 Microcytosis Not Reportable 09/28/17 07:15 Macrocytosis Not Reportable 09/28/17 07:15 Spherocytes Not Reportable 09/28/17 07:15 Pappenheimer Bodies Not Reportable 09/28/17 07:15 Sickle Cells Not Reportable 09/28/17 07:15 Target Cells Not Reportable 09/28/17 07:15 Tear Drop Cells Not Reportable 09/28/17 07:15 Ovalocytes Not Reportable 09/28/17 07:15 Helmet Cells Not Reportable 09/28/17 07:15 [place] Bodies Not Reportable 09/28/17 07:15 [place] Rings Not Reportable 09/28/17 07:15 [place] Cells 1+ 09/28/17 07:15 Bite Cells Not Reportable 09/28/17 07:15 Crenated Cell Not Reportable 09/28/17 07:15 Elliptocytes Not Reportable 09/28/17 07:15 Acanthocytes (Spur) Not Reportable 09/28/17 07:15 Rouleaux Not Reportable 09/28/17 07:15 Hemoglobin C Crystals Not Reportable 09/28/17 07:15 Schistocytes Not Reportable 09/28/17 07:15 Malaria parasites Not Reportable 09/28/17 07:15 Narinder Bodies Not Reportable 09/28/17 07:15 Hem Pathologist Commnt No 09/28/17 07:15 PT 17.0 Sec. (12.2-14.9) H 09/27/17 18:29 INR 1.31 (0.87-1.13) H 09/27/17 18:29 APTT 38.1 Sec. (24.2-36.6) H 09/27/17 18:29 VBG pH 7.376 (7.320-7.420) 09/27/17 18:29 Sodium 139 mmol/L (137-145) 09/30/17 05:58 Potassium 3.2 mmol/L (3.6-5.0) L 09/30/17 05:58 Chloride 104.4 mmol/L (98-107) 09/30/17 05:58 Carbon Dioxide 22 mmol/L (22-30) D 09/30/17 05:58 Anion Gap 16 mmol/L 09/30/17 05:58 BUN 17 mg/dL (7-17) 09/30/17 05:58 Creatinine 1.1 mg/dL (0.7-1.2) 09/30/17 05:58 Estimated GFR > 60 ml/min 09/30/17 05:58 BUN/Creatinine Ratio 15 % 09/30/17 05:58 Glucose 102 mg/dL (65-100) H 09/30/17 05:58 POC Glucose 164 (70-105) H 09/27/17 18:37 Lactic Acid 1.90 mmol/L (0.7-2.0) 09/27/17 22:01 Calcium 7.7 mg/dL (8.4-10.2) L 09/30/17 05:58 Magnesium 1.50 mg/dL (1.7-2.3) L 09/27/17 18:29 Total Bilirubin 0.80 mg/dL (0.1-1.2) 09/27/17 18:29 AST 54 units/L (5-40) H 09/27/17 18:29 ALT 15 units/L (7-56) 09/27/17 18:29 Alkaline Phosphatase 126 units/L (35-129) 09/27/17 18:29 Total Creatine Kinase 1335 units/L (30-135) H 09/27/17 18:29 Total Protein 6.6 g/dL (6.3-8.2) 09/27/17 18:29 Albumin 3.5 g/dL (3.9-5) L 09/27/17 18:29 Albumin/Globulin Ratio 1.1 % 09/27/17 18:29 TSH 0.868 mlU/mL (0.270-4.200) 09/27/17 18:34 Free T4 1.10 ng/dL (0.76-1.46) 09/27/17 18:34 Urine Color Adali (Yellow) 09/27/17 19:11 Urine Turbidity Turbid (Clear) 09/27/17 19:11 Urine pH 5.0 (5.0-7.0) 09/27/17 19:11 Ur Specific [place] 1.015 (1.003-1.030) 09/27/17 19:11 Urine Protein 100 mg/dl mg/dL (Negative) 09/27/17 19:11 Urine Glucose (UA) Neg mg/dL (Negative) 09/27/17 19:11 Urine Ketones Neg mg/dL (Negative) 09/27/17 19:11 Urine Blood Lg (Negative) 09/27/17 19:11 Urine Nitrite Neg (Negative) 09/27/17 19:11 Urine Bilirubin Neg (Negative) 09/27/17 19:11 Urine Urobilinogen 2.0 mg/dL (<2.0) 09/27/17 19:11 Ur Leukocyte Esterase Lg (Negative) 09/27/17 19:11 Urine WBC (Auto) > 182.0 /HPF (0.0-6.0) H 09/27/17 19:11 Urine RBC (Auto) 11.0 /HPF (0.0-6.0) 09/27/17 19:11 U Epithel Cells (Auto) 18.0 /HPF (0-13.0) H 09/27/17 19:11 Urine Bacteria (Auto) 4+ /HPF (Negative) 09/27/17 19:11 Urine WBC Clumps 3+ /HPF 09/27/17 19:11 Amorphous Crystals Few 09/27/17 19:11 Urine Mucus 3+ /HPF 09/27/17 19:11 Urine Opiates Screen Presumptive negative 09/27/17 19:11 Urine Methadone Screen Presumptive negative 09/27/17 19:11 Ur Barbiturates Screen Presumptive negative 09/27/17 19:11 Ur Phencyclidine Scrn Presumptive negative 09/27/17 19:11 Ur Amphetamines Screen Presumptive negative 09/27/17 19:11 U Benzodiazepines Scrn Presumptive negative 09/27/17 19:11 Urine Cocaine Screen Presumptive negative 09/27/17 19:11 U Marijuana (THC) Screen Presumptive negative 09/27/17 19:11 Drugs of Abuse Note Disclamer 09/27/17 19:11
--- NOTE | 2017-09-30 09:01 | Progress Note ---
Assessment and Plan Impression: * Nonoliguric RADHA secondary to prerenal azotemia due to hypoperfusion vs sepsis related ATN * Sepsis * Ecoli bacteremia/UTI * Metabolic acidosis secondary to lactic acidosis * Hypokalemia * Hypomagnesemia * Thrombocytopenic Plan: * Renal function improved * Continue 0.45NS w/ bicarb IVF - decrease rate, add KCl to bags * Replete K and Mg * Abx per primary team * Repeat (Sep 29) cultures pending * Avoid potential nephrotoxins * Dose medications for renal function Subjective Date of service: 09/30/17 Interval history: Patient reports that she is feeling better. Eating but taking it slowly - feels bloated at times. Objective - Vital Signs Vital signs: Vital Signs - 12hr 09/29/17 09/30/17 23:50 05:56 Temperature 99.9 F H 99.4 F Pulse Rate 84 78 Respiratory 16 18 Rate Blood Pressure 122/72 120/65 O2 Sat by Pulse 91 92 Oximetry - General Appearance General appearance: well-developed, well-nourished EENT: ATNC Respiratory: Present: Clear to Ascultation Cardiology: regular, S1S2 Gastrointestinal: normal, no tenderness, no distended Integumentary: no rash Neurologic: alert and oriented x3 Musculoskeletal: other (no edema) Psychiatric: cooperative - Lab 09/30/17 05:58 09/30/17 05:58 Most recent lab results Calcium 7.7 mg/dL (8.4-10.2) L 09/30/17 05:58 Magnesium 1.50 mg/dL (1.7-2.3) L 09/27/17 18:29
[2017-09-30] MEDS: HEPARIN SUB-Q SCH (09:27)
[2017-09-30] MEDS: SODIUM CHLORIDE FLUSH SYRINGE 10 ML IV SCH (09:28)
[2017-09-30] MEDS ORDERED: K-DUR PO ONE (09:30)
[2017-09-30] MEDS: ROCEPHIN/NS 1 GM/50 ML 1 GM/50 ML BAG IV SCH (10:12)
--- NOTE | 2017-09-30 10:24 | Consultation ---
History of Present Illness - Reason for Consult Consult date: 09/30/17 bacteremia Requesting physician: PETER BARROS - History of Present Illness 61 y/o female with history of remote kidney stone; admitted on 09/27/17 due to a week history of generalized weakness, malaise, subjective fever, urinary frequency however denies dysuria. She denies any sick contact. Reports now sure but no vomiting or diarrhea. In the ED, initial temperature was 103, heart rate 131, respirations 16, O2 sat 97, blood pressure 70/62. Initial white count 7.8 with 35% bands. Hemoglobin 13.6. Platelets 109. Lactic acid 4.6. Urinalysis showed more than 1025 and large leukocyte esterase. UDS was negative. Renal ultrasound showed mild right hydronephrosis. Microbiology: Blood cultures: 09/27 E coli 4 of 4 bottles 09/29 ngtd Urine cultures: 09/27 E coli Respiratory cultures: Current Antimicrobials: Ceftriaxone Flagyl Previous Antimicrobials: Past History Past Medical History: other (kidney stones) Medications and Allergies Allergies Allergy/AdvReac Type Severity Reaction Status Date / Time No Known Allergies Allergy Unverified 09/27/17 18:21 Home Medications Medication Instructions Recorded Confirmed Last Taken Type No Known Home Medications [No 09/27/17 09/27/17 Unknown History Reported Home Medications] Active Meds: Active Medications Acetaminophen (Tylenol) 650 mg PO Q4H PRN PRN Reason: Pain MILD(1-3)/Fever >100.5/LUIS Last Admin: 09/28/17 16:53 Dose: 650 mg Heparin Sodium (Porcine) (Heparin) 5,000 unit SUB-Q Q12HR JESSICA Last Admin: 09/30/17 09:27 Dose: 5,000 unit Ceftriaxone Sodium (Rocephin/Ns 1 Gm/50 Ml) 1 gm in 50 mls @ 100 mls/hr IV Q24H JESSICA; Protocol Last Admin: 09/30/17 10:12 Dose: 100 mls/hr Metronidazole (Flagyl 500 Mg/100 Ml) 500 mg in 100 mls @ 100 mls/hr IV Q8HR JESSICA ; Protocol Last Admin: 09/30/17 06:08 Dose: 100 mls/hr Magnesium Sulfate (Magnesium Sulfate 2gm/50ml) 2 gm in 50 mls @ 25 mls/hr IV ONCE ONE Stop: 09/30/17 12:59 Sodium Bicarbonate 75 meq/Potassium Chloride 20 meq/Sodium Chloride 1,085 mls @ 75 mls/hr IV DIRECT JESSICA Ondansetron HCl (Zofran) 4 mg IV Q4H PRN PRN Reason: Nausea And Vomiting Last Admin: 09/28/17 01:29 Dose: 4 mg Oxycodone/Acetaminophen (Percocet 5/325) 1 tab PO Q6H PRN PRN Reason: Pain, Moderate (4-6) Sodium Chloride (Sodium Chloride Flush Syringe 10 Ml) 10 ml IV BID JESSICA Last Admin: 09/30/17 09:28 Dose: 10 ml Sodium Chloride (Sodium Chloride Flush Syringe 10 Ml) 10 ml IV PRN PRN PRN Reason: LINE FLUSH Last Admin: 09/29/17 06:01 Dose: 10 ml Review of Systems All systems: negative (as per HPI) Physical Examination - Physical Exam Narrative exam: General appearance: Alert in NAD, conversant Eyes: anicteric sclerae, moist conjunctivae; no lid-lag; PERRLA HENT: Atraumatic; oropharynx clear with moist mucous membranes and no mucosal ulcerations/no oral thrush; normal hard and soft palate. Normal external ears. Neck: Trachea midline; supple, no thyromegaly or lymphadenopathy Lungs: CTA, with normal respiratory effort and no intercostal retractions CV: RRR, no murmurs Abdomen: Soft, non-tender; no masses or hepatosplenomegaly Extremities: No peripheral edema or extremity lymphadenopathy Skin: Normal temperature, turgor and texture; no rash, ulcers or subcutaneous nodules Psych: Appropriate affect, alert and oriented to person, place and time. Neuro: alert and oriented x 3. Moving all extermities Lines: No CVL / PICC - Constitutional Vitals: Vital Signs Temp Pulse Resp BP Pulse Ox 99.4 F 78 18 120/65 92 09/30/17 05:56 09/30/17 05:56 09/30/17 05:56 09/30/17 05:56 09/30/17 05:56 Temperature -Last 24 Hours Temperature 99.4 F Temperature 99.9 F Temperature 100.4 F Temperature 99.9 F Results - Labs CBC & Chem 7: 09/30/17 05:58 09/30/17 05:58 Labs: Abnormal lab results 08/09/30/17 09/30/17 Range/Units 05:58 05:58 05:58 WBC 12.2 H (4.5-11.0) K/mm3 Plt Count 51 L (140-440) K/mm3 Lymph % (Auto) 7.2 L (13.4-35.0) % Lymph # 0.9 L (1.2-5.4) K/mm3 Seg Neutrophils % 86.6 H (40.0-70.0) % Seg Neutrophils # 10.5 H (1.8-7.7) K/mm3 Potassium 3.2 L (3.6-5.0) mmol/L Glucose 102 H (65-100) mg/dL Calcium 7.7 L (8.4-10.2) mg/dL Magnesium 0.20 L* (1.7-2.3) mg/dL Assessment and Plan Assessment: 1) Severe Sepsis: Present on admission, manifested by fever, tachycardia, hypotension, bandemia, increased lactate. Etiology most likely E coli bacteremia and UTI. 2) Complicated UTI: Secondary to Escherichia coli. Patient with history of kidney stones, noted mild hydronephrosis on ultrasound. Escherichia coli is sensitive to ceftriaxone/levaquin. 3) E coli septicemia: from UTI -blood cx 09/27 E coli 4 of 4 bottles -blood cx 09/29 no growth 4) RADHA: from sepsis 5) Thrombocytopenia: from sepsis Plan: -follow-up repeat blood cultures -increase ceftriaxone to 2 g IV qday -stop flagyl -monitor fever - may linger for 3-5 days despite appropriate abx -monitor platelets -upon discharge will do oral levaquin total 14 days I am rounding on 10/02 Thank you for your consultation, will follow up with you. Roma Ward MD Infectious Diseases Specialist [facility] ([facility]) M [phone] O [phone]
[2017-09-30] MEDS ORDERED: ROCEPHIN/NS 2 GM/100 ML 2 GM/100 ML BAG IV SCH (11:00)
[2017-09-30] MEDS ORDERED: MAGNESIUM SULFATE 2GM/50ML 2 GM/50 ML BAG IV ONE (11:00)
[2017-09-30] MEDS ORDERED: ROCEPHIN/NS 1 GM/50 ML 1 GM/50 ML BAG IV ONE (12:00)
[2017-09-30] MEDS ORDERED: SODIUM BICARBONATE IV SCH (12:00)
[2017-09-30] MEDS ORDERED: NACL 0.45% IV SCH (12:00)
[2017-09-30] MEDS ORDERED: KCL IV SCH (12:00)
[2017-10-01] MEDS: FLAGYL 500 MG/100 ML 500 MG/100 ML BAG IV SCH ×4 (00:26→22:02)
[2017-10-01] MEDS: HEPARIN SUB-Q SCH ×3 (00:29→22:01)
[2017-10-01] MEDS: SODIUM CHLORIDE FLUSH SYRINGE 10 ML IV SCH ×3 (00:29→22:03)
[2017-10-01] MEDS: SODIUM BICARBONATE IV SCH (07:34)
[2017-10-01] MEDS: NACL 0.45% IV SCH (07:34)
[2017-10-01] MEDS: KCL IV SCH (07:34)
--- NOTE | 2017-10-01 09:29 | Progress Note ---
Assessment and Plan Impression: * Nonoliguric RADHA secondary to prerenal azotemia due to hypoperfusion vs sepsis related ATN * Sepsis * Ecoli bacteremia/UTI * Metabolic acidosis secondary to lactic acidosis * Hypokalemia * Hypomagnesemia * Thrombocytopenia Plan: * AM labs are pending * Continue 0.45NS w/ bicarb and KCl * Replete K and Mg prn * Abx per primary team - Repeat cultures Sep 29 NGTD * Avoid potential nephrotoxins * Dose medications for renal function Subjective Date of service: 10/01/17 Interval history: Patient without complaint this am Objective - Vital Signs Vital signs: Vital Signs - 12hr 10/01/17 10/01/17 00:36 05:45 Temperature 99.3 F 99.6 F Pulse Rate 71 78 Respiratory 20 16 Rate Blood Pressure 114/62 113/65 O2 Sat by Pulse 93 94 Oximetry - General Appearance General appearance: well-developed, well-nourished EENT: ATNC Respiratory: Present: Clear to Ascultation Cardiology: regular, S1S2 Gastrointestinal: normal, no tenderness, no distended Integumentary: no rash, warm and dry Neurologic: no focal deficit, alert and oriented x3 Musculoskeletal: other (no edema) Psychiatric: cooperative - Lab 09/30/17 05:58 09/30/17 05:58 Most recent lab results Calcium 7.7 mg/dL (8.4-10.2) L 09/30/17 05:58 Magnesium 0.20 mg/dL (1.7-2.3) L* 09/30/17 05:58
[2017-10-01] MEDS: ROCEPHIN/NS 2 GM/100 ML 2 GM/100 ML BAG IV SCH (11:10)
[2017-10-01 11:31] LABS: BUN/Creatinine Ratio 14; Blood Urea Nitrogen 14 mg/dL (7-17); Calcium 7.8 mg/dL (8.4-10.2); Hemolysis Index 23
--- NOTE | 2017-10-01 12:43 | Progress Note ---
Assessment and Plan Assessment and plan: Sepsis secondary to UTI - Patient was treated according to sepsis protocol with IV fluids and antibiotics - Urine and blood cultures revealed Escherichia coli for both, essentially pansensitive, ID following Diarrhea - continue flagyl for now - Fluid replacement - reactive from severe UTI Acute kidney failure - Nephrology following - Nonoliguric RADHA secondary to prerenal azotemia due to hypoperfusion vs sepsis related ATN - Continue IV fluids Metabolic acidosis - Half normal saline with sodium bicarbonate - will monitor Hypokalemia - Replete DVT prophylaxis - On heparin Disposition - continue inpatient care. History Interval history: No new issues overnight. Hospitalist Physical - Constitutional Vitals: Temp Pulse Resp BP Pulse Ox 99.6 F 78 16 113/65 94 10/01/17 05:45 10/01/17 05:45 10/01/17 05:45 10/01/17 05:45 10/01/17 05:45 General appearance: Present: no acute distress, well-nourished - EENT Eyes: Present: PERRL, EOM intact ENT: hearing intact, clear oral mucosa, dentition normal - Neck Neck: Present: supple, normal ROM - Respiratory Respiratory effort: normal Respiratory: bilateral: CTA - Cardiovascular Rhythm: regular Heart Sounds: Present: S1 & S2. Absent: gallop, rub - Extremities Extremities: no ischemia, No edema, Full ROM - Abdominal General gastrointestinal: soft, non-tender, non-distended, normal bowel sounds - Integumentary Integumentary: Present: clear, warm, dry - Neurologic Neurologic: CNII-XII intact, moves all extremities Results - Labs CBC & Chem 7: 09/30/17 05:58 10/01/17 10:49 Labs: Laboratory Last Values WBC 12.2 K/mm3 (4.5-11.0) H 09/30/17 05:58 RBC 4.48 M/mm3 (3.65-5.03) 09/30/17 05:58 Hgb 12.5 gm/dl (10.1-14.3) 09/30/17 05:58 Hct 37.0 % (30.3-42.9) 09/30/17 05:58 MCV 83 fl (79-97) 09/30/17 05:58 MCH 28 pg (28-32) 09/30/17 05:58 MCHC 34 % (30-34) 09/30/17 05:58 RDW 14.3 % (13.2-15.2) 09/30/17 05:58 Plt Count 51 K/mm3 (140-440) L 09/30/17 05:58 Lymph % (Auto) 7.2 % (13.4-35.0) L 09/30/17 05:58 Anderson % (Auto) 5.5 % (0.0-7.3) 09/30/17 05:58 Eos % (Auto) 0.4 % (0.0-4.3) 09/30/17 05:58 Baso % (Auto) 0.3 % (0.0-1.8) 09/30/17 05:58 Lymph # 0.9 K/mm3 (1.2-5.4) L 09/30/17 05:58 Anderson # 0.7 K/mm3 (0.0-0.8) 09/30/17 05:58 Eos # 0.0 K/mm3 (0.0-0.4) 09/30/17 05:58 Baso # 0.0 K/mm3 (0.0-0.1) 09/30/17 05:58 Add Manual Diff Complete 09/28/17 07:15 Total Counted 100 09/28/17 07:15 Seg Neutrophils % 86.6 % (40.0-70.0) H 09/30/17 05:58 Seg Neuts % (Manual) 73.0 % (40.0-70.0) H 09/28/17 07:15 Band Neutrophils % 13.0 % 09/28/17 07:15 Lymphocytes % (Manual) 2.0 % (13.4-35.0) L 09/28/17 07:15 Reactive Lymphs % (Man) 0 % 09/28/17 07:15 Monocytes % (Manual) 1.0 % (0.0-7.3) 09/28/17 07:15 Eosinophils % (Manual) 0 % (0.0-4.3) 09/28/17 07:15 Basophils % (Manual) 0 % (0.0-1.8) 09/28/17 07:15 Metamyelocytes % 11.0 % 09/28/17 07:15 Myelocytes % 0 % 09/28/17 07:15 Promyelocytes % 0 % 09/28/17 07:15 Blast Cells % 0 % 09/28/17 07:15 Nucleated RBC % Not Reportable 09/28/17 07:15 Seg Neutrophils # 10.5 K/mm3 (1.8-7.7) H 09/30/17 05:58 Seg Neutrophils # Man 9.6 K/mm3 (1.8-7.7) H 09/28/17 07:15 Band Neutrophils # 1.7 K/mm3 09/28/17 07:15 Lymphocytes # (Manual) 0.3 K/mm3 (1.2-5.4) L 09/28/17 07:15 Abs React Lymphs (Man) 0.0 K/mm3 09/28/17 07:15 Monocytes # (Manual) 0.1 K/mm3 (0.0-0.8) 09/28/17 07:15 Eosinophils # (Manual) 0.0 K/mm3 (0.0-0.4) 09/28/17 07:15 Basophils # (Manual) 0.0 K/mm3 (0.0-0.1) 09/28/17 07:15 Metamyelocytes # 1.5 K/mm3 09/28/17 07:15 Myelocytes # 0.0 K/mm3 09/28/17 07:15 Promyelocytes # 0.0 K/mm3 09/28/17 07:15 Blast Cells # 0.0 K/mm3 09/28/17 07:15 WBC Morphology Not Reportable 09/28/17 07:15 Hypersegmented Neuts Not Reportable 09/28/17 07:15 Hyposegmented Neuts Not Reportable 09/28/17 07:15 Hypogranular Neuts Not Reportable 09/28/17 07:15 Smudge Cells Not Reportable 09/28/17 07:15 Toxic Granulation Not Reportable 09/28/17 07:15 Toxic Vacuolation Few 09/28/17 07:15 Dohle Bodies Few 09/28/17 07:15 Pelger-Huet Anomaly Not Reportable 09/28/17 07:15 Parisa Rods Not Reportable 09/28/17 07:15 Platelet Estimate Cons 09/28/17 07:15 Clumped Platelets Not Reportable 09/28/17 07:15 Plt Clumps, EDTA Not Reportable 09/28/17 07:15 Large Platelets Few 09/28/17 07:15 Giant Platelets Not Reportable 09/28/17 07:15 Platelet Satelliting Not Reportable 09/28/17 07:15 Plt Morphology Comment Not Reportable 09/28/17 07:15 RBC Morphology Not Reportable 09/28/17 07:15 Dimorphic RBCs Not Reportable 09/28/17 07:15 Polychromasia Not Reportable 09/28/17 07:15 Hypochromasia Not Reportable 09/28/17 07:15 Poikilocytosis 1+ 09/28/17 07:15 Anisocytosis 1+ 09/28/17 07:15 Microcytosis Not Reportable 09/28/17 07:15 Macrocytosis Not Reportable 09/28/17 07:15 Spherocytes Not Reportable 09/28/17 07:15 Pappenheimer Bodies Not Reportable 09/28/17 07:15 Sickle Cells Not Reportable 09/28/17 07:15 Target Cells Not Reportable 09/28/17 07:15 Tear Drop Cells Not Reportable 09/28/17 07:15 Ovalocytes Not Reportable 09/28/17 07:15 Helmet Cells Not Reportable 09/28/17 07:15 Zaragoza-Deming Bodies Not Reportable 09/28/17 07:15 Chester Rings Not Reportable 09/28/17 07:15 Jovany Cells 1+ 09/28/17 07:15 Bite Cells Not Reportable 09/28/17 07:15 Crenated Cell Not Reportable 09/28/17 07:15 Elliptocytes Not Reportable 09/28/17 07:15 Acanthocytes (Spur) Not Reportable 09/28/17 07:15 Rouleaux Not Reportable 09/28/17 07:15 Hemoglobin C Crystals Not Reportable 09/28/17 07:15 Schistocytes Not Reportable 09/28/17 07:15 Malaria parasites Not Reportable 09/28/17 07:15 Narinder Bodies Not Reportable 09/28/17 07:15 Hem Pathologist Commnt No 09/28/17 07:15 PT 17.0 Sec. (12.2-14.9) H 09/27/17 18:29 INR 1.31 (0.87-1.13) H 09/27/17 18:29 APTT 38.1 Sec. (24.2-36.6) H 09/27/17 18:29 VBG pH 7.376 (7.320-7.420) 09/27/17 18:29 Sodium 137 mmol/L (137-145) 10/01/17 10:49 Potassium 3.2 mmol/L (3.6-5.0) L 10/01/17 10:49 Chloride 101.0 mmol/L (98-107) 10/01/17 10:49 Carbon Dioxide 24 mmol/L (22-30) 10/01/17 10:49 Anion Gap 15 mmol/L 10/01/17 10:49 BUN 14 mg/dL (7-17) 10/01/17 10:49 Creatinine 1.0 mg/dL (0.7-1.2) 10/01/17 10:49 Estimated GFR > 60 ml/min 10/01/17 10:49 BUN/Creatinine Ratio 14 % 10/01/17 10:49 Glucose 115 mg/dL (65-100) H 10/01/17 10:49 POC Glucose 164 (70-105) H 09/27/17 18:37 Lactic Acid 1.90 mmol/L (0.7-2.0) 09/27/17 22:01 Calcium 7.8 mg/dL (8.4-10.2) L 10/01/17 10:49 Magnesium 2.00 mg/dL (1.7-2.3) 10/01/17 10:49 Total Bilirubin 0.80 mg/dL (0.1-1.2) 09/27/17 18:29 AST 54 units/L (5-40) H 09/27/17 18:29 ALT 15 units/L (7-56) 09/27/17 18:29 Alkaline Phosphatase 126 units/L (35-129) 09/27/17 18:29 Total Creatine Kinase 1335 units/L (30-135) H 09/27/17 18:29 Total Protein 6.6 g/dL (6.3-8.2) 09/27/17 18:29 Albumin 3.5 g/dL (3.9-5) L 09/27/17 18:29 Albumin/Globulin Ratio 1.1 % 09/27/17 18:29 TSH 0.868 mlU/mL (0.270-4.200) 09/27/17 18:34 Free T4 1.10 ng/dL (0.76-1.46) 09/27/17 18:34 Urine Color Adali (Yellow) 09/27/17 19:11 Urine Turbidity Turbid (Clear) 09/27/17 19:11 Urine pH 5.0 (5.0-7.0) 09/27/17 19:11 Ur Specific [place] 1.015 (1.003-1.030) 09/27/17 19:11 Urine Protein 100 mg/dl mg/dL (Negative) 09/27/17 19:11 Urine Glucose (UA) Neg mg/dL (Negative) 09/27/17 19:11 Urine Ketones Neg mg/dL (Negative) 09/27/17 19:11 Urine Blood Lg (Negative) 09/27/17 19:11 Urine Nitrite Neg (Negative) 09/27/17 19:11 Urine Bilirubin Neg (Negative) 09/27/17 19:11 Urine Urobilinogen 2.0 mg/dL (<2.0) 09/27/17 19:11 Ur Leukocyte Esterase Lg (Negative) 09/27/17 19:11 Urine WBC (Auto) > 182.0 /HPF (0.0-6.0) H 09/27/17 19:11 Urine RBC (Auto) 11.0 /HPF (0.0-6.0) 09/27/17 19:11 U Epithel Cells (Auto) 18.0 /HPF (0-13.0) H 09/27/17 19:11 Urine Bacteria (Auto) 4+ /HPF (Negative) 09/27/17 19:11 Urine WBC Clumps 3+ /HPF 09/27/17 19:11 Amorphous Crystals Few 09/27/17 19:11 Urine Mucus 3+ /HPF 09/27/17 19:11 Urine Opiates Screen Presumptive negative 09/27/17 19:11 Urine Methadone Screen Presumptive negative 09/27/17 19:11 Ur Barbiturates Screen Presumptive negative 09/27/17 19:11 Ur Phencyclidine Scrn Presumptive negative 09/27/17 19:11 Ur Amphetamines Screen Presumptive negative 09/27/17 19:11 U Benzodiazepines Scrn Presumptive negative 09/27/17 19:11 Urine Cocaine Screen Presumptive negative 09/27/17 19:11 U Marijuana (THC) Screen Presumptive negative 09/27/17 19:11 Drugs of Abuse Note Disclamer 09/27/17 19:11
[2017-10-01] MEDS: DEEP SEA NS SCH ×2 (14:44→22:01)
[2017-10-02] MEDS: NACL 0.45% IV SCH (02:14)
[2017-10-02] MEDS: SODIUM BICARBONATE IV SCH (02:14)
[2017-10-02] MEDS: KCL IV SCH (02:14)
[2017-10-02 06:06] LABS: Hematocrit 34.2 % (30.3-42.9); Hemoglobin 11.8 gm/dl (10.1-14.3); Mean Corpuscular HGB Conc 34 % (30-34); Mean Corpuscular Hemoglobin 28 pg (28-32); Mean Corpuscular Volume 82 fl (79-97); Platelet Count 104 K/mm3 (140-440); Red Blood Count 4.17 M/mm3 (3.65-5.03); Red Cell Distribution Width 14.4 % (13.2-15.2)
[2017-10-02 06:28] LABS: BUN/Creatinine Ratio 14; Blood Urea Nitrogen 13 mg/dL (7-17); Calcium 7.8 mg/dL (8.4-10.2); Hemolysis Index 3
[2017-10-02] MEDS: FLAGYL 500 MG/100 ML 500 MG/100 ML BAG IV SCH ×3 (07:01→23:01)
[2017-10-02 07:22] LABS: Anisocytosis 1+; Band Neutrophils # (Manual) 1.7 K/mm3; Basophils % (Manual) 0 % (0.0-1.8); Eosinophils % (Manual) 0 % (0.0-4.3); Hypochromasia 1+; Ovalocytes 1+; Platelet Estimate Consistent w Auto; Total Cells Counted 100
--- NOTE | 2017-10-02 08:11 | Progress Note ---
Assessment and Plan Impression: * Nonoliguric RADHA secondary to prerenal azotemia due to hypoperfusion vs sepsis related ATN * Sepsis * Ecoli bacteremia/UTI * Metabolic acidosis secondary to lactic acidosis * Hypokalemia * Hypomagnesemia * Thrombocytopenia Plan: * Renal function is stable * Will stop IVF - encouraged po intake * Replete K - ordered 40meq * Abx per primary team - Repeat cultures Sep 29 NGTD * Avoid potential nephrotoxins * Dose medications for renal function Subjective Date of service: 10/02/17 Interval history: Patient has no complaints. Reports one loose stool yesterday. Stool this AM formed. Objective - Vital Signs Vital signs: Vital Signs - 12hr 10/01/17 10/01/17 10/02/17 22:00 22:18 05:17 Temperature 98.6 F 98.3 F Pulse Rate 66 74 Respiratory 16 16 Rate Respiratory 18 Rate [no pain] Blood Pressure 111/55 113/57 O2 Sat by Pulse 94 94 Oximetry - General Appearance General appearance: well-developed, well-nourished EENT: ATNC Respiratory: Present: Clear to Ascultation Cardiology: regular, S1S2 Gastrointestinal: normal Integumentary: no rash, warm and dry Neurologic: no focal deficit Musculoskeletal: other Psychiatric: cooperative - Lab 10/02/17 05:27 10/02/17 05:27 Most recent lab results Calcium 7.8 mg/dL (8.4-10.2) L 10/02/17 05:27 Magnesium 2.00 mg/dL (1.7-2.3) 10/01/17 10:49
[2017-10-02] MEDS: SODIUM CHLORIDE FLUSH SYRINGE 10 ML IV SCH ×2 (10:38→23:03)
[2017-10-02] MEDS: ROCEPHIN/NS 2 GM/100 ML 2 GM/100 ML BAG IV SCH (10:39)
--- NOTE | 2017-10-02 10:40 | Cat Scan Report ---
CT abdomen and pelvis without contrast: Right hydronephrosis. Transverse images are obtained from the lower chest to the ischium with coronal and sagittal 2-D reformatted images. There are bilateral pleural effusions greater on the right than left. There is partial atelectasis of both lower lobes significantly more on the right. Several hypodensities are scattered in the liver consistent with cysts. The largest of these is 18 mm. The abdominal structures otherwise appear unremarkable. The left kidney is normal. There is moderate dilatation of the right renal collecting system. Numerous calculi are aggregated in the lower right renal collecting system as well as a 11.6 mm calculus the proximal ureter. Mild perinephric stranding is identified. The urinary bladder is unremarkable. The unopacified bowel and mesentery appears generally unremarkable except for minimal umbilical hernia containing fat. No inflammatory changes appreciated. There is a mild levoscoliosis of the lumbar spine. Significant degenerative discogenic and bony changes are present at L5-S1. Impressions: 1. Obstructing calculus in the proximal right ureter with moderate hydronephrosis. Right renal calculi. 2. Bibasilar pulmonary atelectasis with bibasilar effusions.
[2017-10-02] MEDS: HEPARIN SUB-Q SCH ×2 (11:14→23:02)
[2017-10-02] MEDS: DEEP SEA NS SCH ×3 (11:26→23:01)
[2017-10-02] MEDS ORDERED: K-DUR PO ONE (12:02)
--- NOTE | 2017-10-02 12:39 | Progress Note ---
Assessment and Plan Assessment and plan: Sepsis secondary to UTI - Patient was treated according to sepsis protocol with IV fluids and antibiotics - Urine and blood cultures revealed Escherichia coli for both, essentially pansensitive, ID following Right ureteral stone with hydronephrosis. Urology consulted. Diarrhea - continue flagyl for now - Fluid replacement - reactive from severe UTI Acute kidney failure - Nephrology following - Nonoliguric RADHA secondary to prerenal azotemia due to hypoperfusion vs sepsis related ATN Metabolic acidosis - Half normal saline with sodium bicarbonate - will monitor Hypokalemia - Replete DVT prophylaxis - On heparin Disposition - continue inpatient care. History Interval history: No new issues overnight. Hospitalist Physical - Constitutional Vitals: Temp Pulse Resp BP Pulse Ox 98.3 F 74 16 113/57 94 10/02/17 05:17 10/02/17 05:17 10/02/17 05:17 10/02/17 05:17 10/02/17 05:17 General appearance: Present: no acute distress, well-nourished - EENT Eyes: Present: PERRL, EOM intact ENT: hearing intact, clear oral mucosa, dentition normal - Neck Neck: Present: supple, normal ROM - Respiratory Respiratory effort: normal Respiratory: bilateral: CTA - Cardiovascular Rhythm: regular Heart Sounds: Present: S1 & S2. Absent: gallop, rub - Extremities Extremities: no ischemia, No edema, Full ROM - Abdominal General gastrointestinal: soft, non-tender, non-distended, normal bowel sounds - Integumentary Integumentary: Present: clear, warm, dry - Neurologic Neurologic: CNII-XII intact, moves all extremities Results - Labs CBC & Chem 7: 10/02/17 05:27 10/02/17 05:27 Labs: Laboratory Last Values WBC 12.9 K/mm3 (4.5-11.0) H 10/02/17 05:27 RBC 4.17 M/mm3 (3.65-5.03) 10/02/17 05:27 Hgb 11.8 gm/dl (10.1-14.3) 10/02/17 05:27 Hct 34.2 % (30.3-42.9) 10/02/17 05:27 MCV 82 fl (79-97) 10/02/17 05:27 MCH 28 pg (28-32) 10/02/17 05:27 MCHC 34 % (30-34) 10/02/17 05:27 RDW 14.4 % (13.2-15.2) 10/02/17 05:27 Plt Count 104 K/mm3 (140-440) L D 10/02/17 05:27 Lymph % (Auto) 7.2 % (13.4-35.0) L 09/30/17 05:58 [place] % (Auto) 5.5 % (0.0-7.3) 09/30/17 05:58 Eos % (Auto) 0.4 % (0.0-4.3) 09/30/17 05:58 Baso % (Auto) 0.3 % (0.0-1.8) 09/30/17 05:58 Lymph # 0.9 K/mm3 (1.2-5.4) L 09/30/17 05:58 [place] # 0.7 K/mm3 (0.0-0.8) 09/30/17 05:58 Eos # 0.0 K/mm3 (0.0-0.4) 09/30/17 05:58 Baso # 0.0 K/mm3 (0.0-0.1) 09/30/17 05:58 Add Manual Diff Complete 10/02/17 05:27 Total Counted 100 10/02/17 05:27 Seg Neutrophils % 86.6 % (40.0-70.0) H 09/30/17 05:58 Seg Neuts % (Manual) 58.0 % (40.0-70.0) 10/02/17 05:27 Band Neutrophils % 13.0 % 10/02/17 05:27 Lymphocytes % (Manual) 12.0 % (13.4-35.0) L 10/02/17 05:27 Reactive Lymphs % (Man) 0 % 10/02/17 05:27 Monocytes % (Manual) 17.0 % (0.0-7.3) H 10/02/17 05:27 Eosinophils % (Manual) 0 % (0.0-4.3) 10/02/17 05:27 Basophils % (Manual) 0 % (0.0-1.8) 10/02/17 05:27 Metamyelocytes % 0 % 10/02/17 05:27 Myelocytes % 0 % 10/02/17 05:27 Promyelocytes % 0 % 10/02/17 05:27 Blast Cells % 0 % 10/02/17 05:27 Nucleated RBC % Not Reportable 10/02/17 05:27 Seg Neutrophils # 10.5 K/mm3 (1.8-7.7) H 09/30/17 05:58 Seg Neutrophils # Man 7.5 K/mm3 (1.8-7.7) 10/02/17 05:27 Band Neutrophils # 1.7 K/mm3 10/02/17 05:27 Lymphocytes # (Manual) 1.5 K/mm3 (1.2-5.4) 10/02/17 05:27 Abs React Lymphs (Man) 0.0 K/mm3 10/02/17 05:27 Monocytes # (Manual) 2.2 K/mm3 (0.0-0.8) H 10/02/17 05:27 Eosinophils # (Manual) 0.0 K/mm3 (0.0-0.4) 10/02/17 05:27 Basophils # (Manual) 0.0 K/mm3 (0.0-0.1) 10/02/17 05:27 Metamyelocytes # 0.0 K/mm3 10/02/17 05:27 Myelocytes # 0.0 K/mm3 10/02/17 05:27 Promyelocytes # 0.0 K/mm3 10/02/17 05:27 Blast Cells # 0.0 K/mm3 10/02/17 05:27 WBC Morphology Not Reportable 10/02/17 05:27 Hypersegmented Neuts Not Reportable 10/02/17 05:27 Hyposegmented Neuts Not Reportable 10/02/17 05:27 Hypogranular Neuts Not Reportable 10/02/17 05:27 Smudge Cells Not Reportable 10/02/17 05:27 Toxic Granulation Not Reportable 10/02/17 05:27 Toxic Vacuolation Not Reportable 10/02/17 05:27 Dohle Bodies Not Reportable 10/02/17 05:27 Pelger-Huet Anomaly Not Reportable 10/02/17 05:27 Parisa Rods Not Reportable 10/02/17 05:27 Platelet Estimate Consistent w auto 10/02/17 05:27 Clumped Platelets Not Reportable 10/02/17 05:27 Plt Clumps, EDTA Not Reportable 10/02/17 05:27 Large Platelets Not Reportable 10/02/17 05:27 Giant Platelets Not Reportable 10/02/17 05:27 Platelet Satelliting Not Reportable 10/02/17 05:27 Plt Morphology Comment Not Reportable 10/02/17 05:27 RBC Morphology Not Reportable 10/02/17 05:27 Dimorphic RBCs Not Reportable 10/02/17 05:27 Polychromasia Not Reportable 10/02/17 05:27 Hypochromasia 1+ 10/02/17 05:27 Poikilocytosis Not Reportable 10/02/17 05:27 Anisocytosis 1+ 10/02/17 05:27 Microcytosis Not Reportable 10/02/17 05:27 Macrocytosis Not Reportable 10/02/17 05:27 Spherocytes Not Reportable 10/02/17 05:27 Pappenheimer Bodies Not Reportable 10/02/17 05:27 Sickle Cells Not Reportable 10/02/17 05:27 Target Cells Not Reportable 10/02/17 05:27 Tear Drop Cells Not Reportable 10/02/17 05:27 Ovalocytes 1+ 10/02/17 05:27 Helmet Cells Not Reportable 10/02/17 05:27 [place] Bodies Not Reportable 10/02/17 05:27 [place] Rings Not Reportable 10/02/17 05:27 [place] Cells Not Reportable 10/02/17 05:27 Bite Cells Not Reportable 10/02/17 05:27 Crenated Cell Not Reportable 10/02/17 05:27 Elliptocytes Not Reportable 10/02/17 05:27 Acanthocytes (Spur) Not Reportable 10/02/17 05:27 Rouleaux Not Reportable 10/02/17 05:27 Hemoglobin C Crystals Not Reportable 10/02/17 05:27 Schistocytes Not Reportable 10/02/17 05:27 Malaria parasites Not Reportable 10/02/17 05:27 Narinder Bodies Not Reportable 10/02/17 05:27 Hem Pathologist Commnt No 10/02/17 05:27 PT 17.0 Sec. (12.2-14.9) H 09/27/17 18:29 INR 1.31 (0.87-1.13) H 09/27/17 18:29 APTT 38.1 Sec. (24.2-36.6) H 09/27/17 18:29 VBG pH 7.376 (7.320-7.420) 09/27/17 18:29 Sodium 140 mmol/L (137-145) 10/02/17 05:27 Potassium 3.4 mmol/L (3.6-5.0) L 10/02/17 05:27 Chloride 103.7 mmol/L (98-107) 10/02/17 05:27 Carbon Dioxide 25 mmol/L (22-30) 10/02/17 05:27 Anion Gap 15 mmol/L 10/02/17 05:27 BUN 13 mg/dL (7-17) 10/02/17 05:27 Creatinine 0.9 mg/dL (0.7-1.2) 10/02/17 05:27 Estimated GFR > 60 ml/min 10/02/17 05:27 BUN/Creatinine Ratio 14 % 10/02/17 05:27 Glucose 98 mg/dL (65-100) 10/02/17 05:27 POC Glucose 164 (70-105) H 09/27/17 18:37 Lactic Acid 1.90 mmol/L (0.7-2.0) 09/27/17 22:01 Calcium 7.8 mg/dL (8.4-10.2) L 10/02/17 05:27 Magnesium 2.00 mg/dL (1.7-2.3) 10/01/17 10:49 Total Bilirubin 0.80 mg/dL (0.1-1.2) 09/27/17 18:29 AST 54 units/L (5-40) H 09/27/17 18:29 ALT 15 units/L (7-56) 09/27/17 18:29 Alkaline Phosphatase 126 units/L (35-129) 09/27/17 18:29 Total Creatine Kinase 1335 units/L (30-135) H 09/27/17 18:29 Total Protein 6.6 g/dL (6.3-8.2) 09/27/17 18:29 Albumin 3.5 g/dL (3.9-5) L 09/27/17 18:29 Albumin/Globulin Ratio 1.1 % 08/19/18 18:29 TSH 0.868 mlU/mL (0.270-4.200) 09/27/17 18:34 Free T4 1.10 ng/dL (0.76-1.46) 09/27/17 18:34 Urine Color [place] (Yellow) 09/27/17 19:11 Urine Turbidity Turbid (Clear) 09/27/17 19:11 Urine pH 5.0 (5.0-7.0) 09/27/17 19:11 Ur Specific [place] 1.015 (1.003-1.030) 09/27/17 19:11 Urine Protein 100 mg/dl mg/dL (Negative) 09/27/17 19:11 Urine Glucose (UA) Neg mg/dL (Negative) 09/27/17 19:11 Urine Ketones Neg mg/dL (Negative) 09/27/17 19:11 Urine Blood Lg (Negative) 09/27/17 19:11 Urine Nitrite Neg (Negative) 09/27/17 19:11 Urine Bilirubin Neg (Negative) 09/27/17 19:11 Urine Urobilinogen 2.0 mg/dL (<2.0) 09/27/17 19:11 Ur Leukocyte Esterase Lg (Negative) 09/27/17 19:11 Urine WBC (Auto) > 182.0 /HPF (0.0-6.0) H 09/27/17 19:11 Urine RBC (Auto) 11.0 /HPF (0.0-6.0) 09/27/17 19:11 U Epithel Cells (Auto) 18.0 /HPF (0-13.0) H 09/27/17 19:11 Urine Bacteria (Auto) 4+ /HPF (Negative) 09/27/17 19:11 Urine WBC Clumps 3+ /HPF 09/27/17 19:11 Amorphous Crystals Few 09/27/17 19:11 Urine Mucus 3+ /HPF 09/27/17 19:11 Urine Opiates Screen Presumptive negative 09/27/17 19:11 Urine Methadone Screen Presumptive negative 09/27/17 19:11 Ur Barbiturates Screen Presumptive negative 09/27/17 19:11 Ur Phencyclidine Scrn Presumptive negative 09/27/17 19:11 Ur Amphetamines Screen Presumptive negative 09/27/17 19:11 U Benzodiazepines Scrn Presumptive negative 09/27/17 19:11 Urine Cocaine Screen Presumptive negative 09/27/17 19:11 U Marijuana (THC) Screen Presumptive negative 09/27/17 19:11 Drugs of Abuse Note Disclamer 09/27/17 19:11
--- NOTE | 2017-10-02 13:27 | Consultation ---
History of Present Illness - Reason for Consult Consult date: 10/02/17 - History of Present Illness Mrs. Whalen is a 61-year-old female who presented to the ED with complaint of fever, generalized weakness. She denies nausea, vomiting, diarrhea, cough. Upon arrival to the ED, patient was febrile 103.1 to and hypotensive w/ SBP 70- 90s. + HX OF STONES BUDDY (09-27-17) - MILD RT HYDRO CTAP (10-02-17) RT MOD HYDRO WITH PROX URETERAL STSONE A/P RT URETERAL STONE PT STATES SHE FEELS BETTER DISCUSSED OPTIONS: ----HYDRATE (at least 32-64 ounces water a day), CALL FOR FEVER GREATER THAT 100, VOMITING X 24 HOURS, PAIN NOT CONTROLLED WITH PAIN PILL cipro (or abx of choice), flomax, cipro, ultram, norco, zofranon chart f/u in office DISCUSSED WITH DR. BENZ Past History Past Medical History: other (kidney stones) Medications and Allergies Allergies Allergy/AdvReac Type Severity Reaction Status Date / Time No Known Allergies Allergy Unverified 09/27/17 18:21 Home Medications Medication Instructions Recorded Confirmed Last Taken Type No Known Home Medications [No 09/27/17 09/27/17 Unknown History Reported Home Medications] Active Meds: Active Medications Acetaminophen (Tylenol) 650 mg PO Q4H PRN PRN Reason: Pain MILD(1-3)/Fever >100.5/LUIS Last Admin: 09/28/17 16:53 Dose: 650 mg Heparin Sodium (Porcine) (Heparin) 5,000 unit SUB-Q Q12HR JESSICA Last Admin: 10/02/17 11:14 Dose: 5,000 unit Metronidazole (Flagyl 500 Mg/100 Ml) 500 mg in 100 mls @ 100 mls/hr IV Q8HR JESSICA ; Protocol Last Admin: 10/02/17 07:01 Dose: 100 mls/hr Ceftriaxone Sodium (Rocephin/Ns 2 Gm/100 Ml) 2 gm in 100 mls @ 200 mls/hr IV Q24HR JESSICA Last Admin: 10/02/17 10:39 Dose: 200 mls/hr Ondansetron HCl (Zofran) 4 mg IV Q4H PRN PRN Reason: Nausea And Vomiting Last Admin: 09/28/17 01:29 Dose: 4 mg Oxycodone/Acetaminophen (Percocet 5/325) 1 tab PO Q6H PRN PRN Reason: Pain, Moderate (4-6) Sodium Chloride (Sodium Chloride Flush Syringe 10 Ml) 10 ml IV BID [facility] Last Admin: 10/02/17 10:38 Dose: 10 ml Sodium Chloride (Sodium Chloride Flush Syringe 10 Ml) 10 ml IV PRN PRN PRN Reason: LINE FLUSH Last Admin: 09/29/17 06:01 Dose: 10 ml Sodium Chloride ([place]) 2 spray NS TID [facility] Last Admin: 10/02/17 11:26 Dose: Not Given Exam - Constitutional Vitals: Temp Pulse Resp BP Pulse Ox 98.3 F 74 16 113/57 94 10/02/17 05:17 10/02/17 05:17 10/02/17 05:17 10/02/17 05:17 10/02/17 05:17 Results - Labs CBC & Chem 7: 10/02/17 05:27 10/02/17 05:27 Labs: Abnormal lab results 10/02/17 10/02/17 Range/Units 05:27 05:27 WBC 12.9 H (4.5-11.0) K/mm3 Plt Count 104 L D (140-440) K/mm3 Lymphocytes % (Manual) 12.0 L (13.4-35.0) % Monocytes % (Manual) 17.0 H (0.0-7.3) % Monocytes # (Manual) 2.2 H (0.0-0.8) K/mm3 Potassium 3.4 L (3.6-5.0) mmol/L Calcium 7.8 L (8.4-10.2) mg/dL
[2017-10-02] MEDS: TYLENOL PO PRN (19:03)
[2017-10-03 06:22] LABS: Basophils # (Auto) 0.1 K/mm3 (0.0-0.1); Basophils % (Auto) 0.4 % (0.0-1.8); Eosinophils # (Auto) 0.1 K/mm3 (0.0-0.4); Eosinophils % (Auto) 0.4 % (0.0-4.3); Hematocrit 35.4 % (30.3-42.9); Hemoglobin 12.1 gm/dl (10.1-14.3); Lymphocytes # (Auto) 1.6 K/mm3 (1.2-5.4); Lymphocytes % (Auto) 10.2 % (13.4-35.0); Mean Corpuscular HGB Conc 34 % (30-34); Mean Corpuscular Hemoglobin 28 pg (28-32); Mean Corpuscular Volume 82 fl (79-97); Monocytes % (Auto) 6.9 % (0.0-7.3); Platelet Count 175 K/mm3 (140-440); Red Blood Count 4.32 M/mm3 (3.65-5.03); Red Cell Distribution Width 14.5 % (13.2-15.2)
[2017-10-03] MEDS: FLAGYL 500 MG/100 ML 500 MG/100 ML BAG IV SCH ×3 (06:26→21:55)
[2017-10-03 06:43] LABS: BUN/Creatinine Ratio 11; Blood Urea Nitrogen 10 mg/dL (7-17); Calcium 8.3 mg/dL (8.4-10.2); Hemolysis Index 14
[2017-10-03] MEDS: DEEP SEA NS SCH ×3 (11:26→21:54)
[2017-10-03] MEDS: HEPARIN SUB-Q SCH ×2 (11:27→21:55)
[2017-10-03] MEDS: ROCEPHIN/NS 2 GM/100 ML 2 GM/100 ML BAG IV SCH (11:27)
[2017-10-03] MEDS: SODIUM CHLORIDE FLUSH SYRINGE 10 ML IV SCH ×2 (11:28→21:59)
--- NOTE | 2017-10-03 14:59 | Progress Note ---
Assessment and Plan Assessment and plan: Sepsis secondary to UTI - Patient was treated according to sepsis protocol with IV fluids and antibiotics - Urine and blood cultures revealed Escherichia coli for both, essentially pansensitive, ID following -Fever last night--if afebrile X 24 hours will d/c in am Right ureteral stone with hydronephrosis. Urology consulted. Diarrhea - continue flagyl for now - Fluid replacement - reactive from severe UTI Acute kidney failure - Nephrology following - Nonoliguric RADHA secondary to prerenal azotemia due to hypoperfusion vs sepsis related ATN Metabolic acidosis - Half normal saline with sodium bicarbonate - will monitor Hypokalemia - Replete DVT prophylaxis - On heparin Disposition - continue inpatient care. Anticipate d/c in am History Interval history: No new issues overnight except fever Hospitalist Physical - Constitutional Vitals: Temp Pulse Resp BP Pulse Ox 99.7 F H 76 18 118/56 93 10/03/17 11:51 10/03/17 11:51 10/03/17 11:51 10/03/17 11:51 10/03/17 11:51 General appearance: Present: no acute distress, well-nourished - EENT Eyes: Present: PERRL, EOM intact ENT: hearing intact, clear oral mucosa, dentition normal - Neck Neck: Present: supple, normal ROM - Respiratory Respiratory effort: normal Respiratory: bilateral: CTA - Cardiovascular Rhythm: regular Heart Sounds: Present: S1 & S2. Absent: gallop, rub - Extremities Extremities: no ischemia, No edema, Full ROM - Abdominal General gastrointestinal: soft, non-tender, non-distended, normal bowel sounds - Integumentary Integumentary: Present: clear, warm, dry - Neurologic Neurologic: CNII-XII intact, moves all extremities Results - Labs CBC & Chem 7: 10/03/17 05:14 10/03/17 05:14 Labs: Laboratory Last Values WBC 15.3 K/mm3 (4.5-11.0) H 10/03/17 05:14 RBC 4.32 M/mm3 (3.65-5.03) 10/03/17 05:14 Hgb 12.1 gm/dl (10.1-14.3) 10/03/17 05:14 Hct 35.4 % (30.3-42.9) 10/03/17 05:14 MCV 82 fl (79-97) 10/03/17 05:14 MCH 28 pg (28-32) 10/03/17 05:14 MCHC 34 % (30-34) 10/03/17 05:14 RDW 14.5 % (13.2-15.2) 10/03/17 05:14 Plt Count 175 K/mm3 (140-440) 10/03/17 05:14 Lymph % (Auto) 10.2 % (13.4-35.0) L 10/03/17 05:14 [place] % (Auto) 6.9 % (0.0-7.3) 10/03/17 05:14 Eos % (Auto) 0.4 % (0.0-4.3) 10/03/17 05:14 Baso % (Auto) 0.4 % (0.0-1.8) 10/03/17 05:14 Lymph # 1.6 K/mm3 (1.2-5.4) 10/03/17 05:14 [place] # 1.0 K/mm3 (0.0-0.8) H 10/03/17 05:14 Eos # 0.1 K/mm3 (0.0-0.4) 10/03/17 05:14 Baso # 0.1 K/mm3 (0.0-0.1) 10/03/17 05:14 Add Manual Diff Complete 10/02/17 05:27 Total Counted 100 10/02/17 05:27 Seg Neutrophils % 82.1 % (40.0-70.0) H 10/03/17 05:14 Seg Neuts % (Manual) 58.0 % (40.0-70.0) 10/02/17 05:27 Band Neutrophils % 13.0 % 10/02/17 05:27 Lymphocytes % (Manual) 12.0 % (13.4-35.0) L 10/02/17 05:27 Reactive Lymphs % (Man) 0 % 10/02/17 05:27 Monocytes % (Manual) 17.0 % (0.0-7.3) H 10/02/17 05:27 Eosinophils % (Manual) 0 % (0.0-4.3) 10/02/17 05:27 Basophils % (Manual) 0 % (0.0-1.8) 10/02/17 05:27 Metamyelocytes % 0 % 10/02/17 05:27 Myelocytes % 0 % 10/02/17 05:27 Promyelocytes % 0 % 10/02/17 05:27 Blast Cells % 0 % 10/02/17 05:27 Nucleated RBC % Not Reportable 10/02/17 05:27 Seg Neutrophils # 12.5 K/mm3 (1.8-7.7) H 10/03/17 05:14 Seg Neutrophils # Man 7.5 K/mm3 (1.8-7.7) 10/02/17 05:27 Band Neutrophils # 1.7 K/mm3 10/02/17 05:27 Lymphocytes # (Manual) 1.5 K/mm3 (1.2-5.4) 10/02/17 05:27 Abs React Lymphs (Man) 0.0 K/mm3 10/02/17 05:27 Monocytes # (Manual) 2.2 K/mm3 (0.0-0.8) H 10/02/17 05:27 Eosinophils # (Manual) 0.0 K/mm3 (0.0-0.4) 10/02/17 05:27 Basophils # (Manual) 0.0 K/mm3 (0.0-0.1) 10/02/17 05:27 Metamyelocytes # 0.0 K/mm3 10/02/17 05:27 Myelocytes # 0.0 K/mm3 10/02/17 05:27 Promyelocytes # 0.0 K/mm3 10/02/17 05:27 Blast Cells # 0.0 K/mm3 10/02/17 05:27 WBC Morphology Not Reportable 10/02/17 05:27 Hypersegmented Neuts Not Reportable 10/02/17 05:27 Hyposegmented Neuts Not Reportable 10/02/17 05:27 Hypogranular Neuts Not Reportable 10/02/17 05:27 Smudge Cells Not Reportable 10/02/17 05:27 Toxic Granulation Not Reportable 10/02/17 05:27 Toxic Vacuolation Not Reportable 10/02/17 05:27 Dohle Bodies Not Reportable 10/02/17 05:27 Pelger-Huet Anomaly Not Reportable 10/02/17 05:27 Parisa Rods Not Reportable 10/02/17 05:27 Platelet Estimate Consistent w auto 10/02/17 05:27 Clumped Platelets Not Reportable 10/02/17 05:27 Plt Clumps, EDTA Not Reportable 10/02/17 05:27 Large Platelets Not Reportable 10/02/17 05:27 Giant Platelets Not Reportable 10/02/17 05:27 Platelet Satelliting Not Reportable 10/02/17 05:27 Plt Morphology Comment Not Reportable 10/02/17 05:27 RBC Morphology Not Reportable 10/02/17 05:27 Dimorphic RBCs Not Reportable 10/02/17 05:27 Polychromasia Not Reportable 10/02/17 05:27 Hypochromasia 1+ 10/02/17 05:27 Poikilocytosis Not Reportable 10/02/17 05:27 Anisocytosis 1+ 10/02/17 05:27 Microcytosis Not Reportable 10/02/17 05:27 Macrocytosis Not Reportable 10/02/17 05:27 Spherocytes Not Reportable 10/02/17 05:27 Pappenheimer Bodies Not Reportable 10/02/17 05:27 Sickle Cells Not Reportable 10/02/17 05:27 Target Cells Not Reportable 10/02/17 05:27 Tear Drop Cells Not Reportable 10/02/17 05:27 Ovalocytes 1+ 10/02/17 05:27 Helmet Cells Not Reportable 10/02/17 05:27 [place] Bodies Not Reportable 10/02/17 05:27 [place] Rings Not Reportable 10/02/17 05:27 [place] Cells Not Reportable 10/02/17 05:27 Bite Cells Not Reportable 10/02/17 05:27 Crenated Cell Not Reportable 10/02/17 05:27 Elliptocytes Not Reportable 10/02/17 05:27 Acanthocytes (Spur) Not Reportable 10/02/17 05:27 Rouleaux Not Reportable 10/02/17 05:27 Hemoglobin C Crystals Not Reportable 10/02/17 05:27 Schistocytes Not Reportable 10/02/17 05:27 Malaria parasites Not Reportable 10/02/17 05:27 Narinder Bodies Not Reportable 10/02/17 05:27 Hem Pathologist Commnt No 10/02/17 05:27 PT 17.0 Sec. (12.2-14.9) H 08/19/18 18:29 INR 1.31 (0.87-1.13) H 09/27/17 18:29 APTT 38.1 Sec. (24.2-36.6) H 09/27/17 18:29 VBG pH 7.376 (7.320-7.420) 09/27/17 18:29 Sodium 140 mmol/L (137-145) 10/03/17 05:14 Potassium 3.5 mmol/L (3.6-5.0) L 10/03/17 05:14 Chloride 102.2 mmol/L (98-107) 10/03/17 05:14 Carbon Dioxide 25 mmol/L (22-30) 10/03/17 05:14 Anion Gap 16 mmol/L 10/03/17 05:14 BUN 10 mg/dL (7-17) 10/03/17 05:14 Creatinine 0.9 mg/dL (0.7-1.2) 10/03/17 05:14 Estimated GFR > 60 ml/min 10/03/17 05:14 BUN/Creatinine Ratio 11 % 10/03/17 05:14 Glucose 101 mg/dL (65-100) H 10/03/17 05:14 POC Glucose 164 (70-105) H 09/27/17 18:37 Lactic Acid 1.90 mmol/L (0.7-2.0) 09/27/17 22:01 Calcium 8.3 mg/dL (8.4-10.2) L 10/03/17 05:14 Magnesium 2.00 mg/dL (1.7-2.3) 10/01/17 10:49 Total Bilirubin 0.80 mg/dL (0.1-1.2) 09/27/17 18:29 AST 54 units/L (5-40) H 09/27/17 18:29 ALT 15 units/L (7-56) 09/27/17 18:29 Alkaline Phosphatase 126 units/L (35-129) 09/27/17 18:29 Total Creatine Kinase 1335 units/L (30-135) H 09/27/17 18:29 Total Protein 6.6 g/dL (6.3-8.2) 09/27/17 18:29 Albumin 3.5 g/dL (3.9-5) L 09/27/17 18:29 Albumin/Globulin Ratio 1.1 % 09/27/17 18:29 TSH 0.868 mlU/mL (0.270-4.200) 09/27/17 18:34 Free T4 1.10 ng/dL (0.76-1.46) 09/27/17 18:34 Urine Color [place] (Yellow) 09/27/17 19:11 Urine Turbidity Turbid (Clear) 09/27/17 19:11 Urine pH 5.0 (5.0-7.0) 09/27/17 19:11 Ur Specific [place] 1.015 (1.003-1.030) 09/27/17 19:11 Urine Protein 100 mg/dl mg/dL (Negative) 09/27/17 19:11 Urine Glucose (UA) Neg mg/dL (Negative) 09/27/17 19:11 Urine Ketones Neg mg/dL (Negative) 09/27/17 19:11 Urine Blood Lg (Negative) 09/27/17 19:11 Urine Nitrite Neg (Negative) 09/27/17 19:11 Urine Bilirubin Neg (Negative) 09/27/17 19:11 Urine Urobilinogen 2.0 mg/dL (<2.0) 09/27/17 19:11 Ur Leukocyte Esterase Lg (Negative) 09/27/17 19:11 Urine WBC (Auto) > 182.0 /HPF (0.0-6.0) H 09/27/17 19:11 Urine RBC (Auto) 11.0 /HPF (0.0-6.0) 09/27/17 19:11 U Epithel Cells (Auto) 18.0 /HPF (0-13.0) H 09/27/17 19:11 Urine Bacteria (Auto) 4+ /HPF (Negative) 09/27/17 19:11 Urine WBC Clumps 3+ /HPF 09/27/17 19:11 Amorphous Crystals Few 09/27/17 19:11 Urine Mucus 3+ /HPF 09/27/17 19:11 Urine Opiates Screen Presumptive negative 09/27/17 19:11 Urine Methadone Screen Presumptive negative 09/27/17 19:11 Ur Barbiturates Screen Presumptive negative 09/27/17 19:11 Ur Phencyclidine Scrn Presumptive negative 09/27/17 19:11 Ur Amphetamines Screen Presumptive negative 09/27/17 19:11 U Benzodiazepines Scrn Presumptive negative 09/27/17 19:11 Urine Cocaine Screen Presumptive negative 09/27/17 19:11 U Marijuana (THC) Screen Presumptive negative 09/27/17 19:11 Drugs of Abuse Note Disclamer 09/27/17 19:11
--- NOTE | 2017-10-03 16:17 | XRay Report ---
FINAL REPORT EXAM: XR CHEST ROUTINE 2V HISTORY: fever, cough TECHNIQUE: 2 view examination of the chest PRIORS: 09/27/2017 FINDINGS: There is new dense consolidation in the right lower lobe base posteriorly. There is adjacent density in the right costophrenic recess. These findings suggest new moderate to large right pleural effusion with adjacent region of atelectasis and/or pneumonia. New left CP angle blunting suggestive of small left pleural effusion. Normal cardiac silhouette size without definite vascular congestion. No evidence of pneumothorax. Upper lungs are clear. No acute displaced fracture. IMPRESSION: New right lung opacity suggestive of moderate to large pleural effusion with adjacent atelectasis and/or pneumonia New left CP angle blunting suggestive of small left pleural effusion
[2017-10-04] MEDS: FLAGYL 500 MG/100 ML 500 MG/100 ML BAG IV SCH (05:47)
[2017-10-04 10:06] LABS: Basophils # (Auto) 0.1 K/mm3 (0.0-0.1); Basophils % (Auto) 0.5 % (0.0-1.8); Eosinophils % (Auto) 0.3 % (0.0-4.3); Hematocrit 31.6 % (30.3-42.9); Hemoglobin 10.9 gm/dl (10.1-14.3); Lymphocytes # (Auto) 1.5 K/mm3 (1.2-5.4); Lymphocytes % (Auto) 10.2 % (13.4-35.0); Mean Corpuscular HGB Conc 35 % (30-34); Mean Corpuscular Hemoglobin 28 pg (28-32); Mean Corpuscular Volume 82 fl (79-97); Monocytes # (Auto) 1.1 K/mm3 (0.0-0.8); Monocytes % (Auto) 7.1 % (0.0-7.3); Platelet Count 217 K/mm3 (140-440); Red Blood Count 3.87 M/mm3 (3.65-5.03); Red Cell Distribution Width 14.8 % (13.2-15.2)
[2017-10-04 10:27] LABS: BUN/Creatinine Ratio 8; Blood Urea Nitrogen 7 mg/dL (7-17); Hemolysis Index 7
[2017-10-04] MEDS: HEPARIN SUB-Q SCH (10:31)
[2017-10-04] MEDS: DEEP SEA NS SCH (10:31)
[2017-10-04] MEDS: SODIUM CHLORIDE FLUSH SYRINGE 10 ML IV SCH (10:32)
--- NOTE | 2017-10-04 10:57 | Discharge Summary ---
Providers - Providers Date of Admission: 09/27/17 21:50 Date of discharge: 10/04/17 Attending physician: IMLAN BENZ 09/27/17 19:52 Consult to Physician [CONS] Urgent Comment: Dr. Stevenson spoke with Dr. Froilan Stephenson @ [phone] Consulting Provider: CHERYL STEPHENSON Physician Instructions: Reason For Exam: acute renal insuf, sepsis 09/29/17 10:19 Consult to Physician [CONS] Routine Comment: Consulting Provider: NINA MONTANO Physician Instructions: Reason For Exam: sepsis, positive blood culture 10/02/17 12:51 Consult to Physician [CONS] Routine Comment: Consulting Provider: RENU GALAN Physician Instructions: Reason For Exam: ureteral stone Primary care physician: [employer] Hospitalization Reason for admission: Sepsis, UTI, hydro Condition: Stable Hospital course: 61 y/o female with history of remote kidney stone; admitted on 09/27/17 due to a week history of generalized weakness, malaise, subjective fever, urinary frequency however denies dysuria. She denies any sick contact. Reports now sure but no vomiting or diarrhea. In the ED, initial temperature was 103, heart rate 131, respirations 16, O2 sat 97, blood pressure 70/62. Initial white count 7.8 with 35% bands. Hemoglobin 13.6. Platelets 109. Lactic acid 4.6. Urinalysis showed more than 1025 and large leukocyte esterase. UDS was negative. Renal ultrasound showed mild right hydronephrosis. The pt was admitted with dx of Severe sepsis, complicated UTI and was later found to have E. coli bacteremia. PT had complications with ARF sec to RADHA from sepsis/hypotension. Also, pt had Renal US that revealed hydronephrosis followed by CT days later that showed ureteral calculus. PT. had improved clinically with resolution of ARF. Urology was consulted and felt that given improvement pt could d/c home and f/u as OP. Repeat blood cultures were negative. D/C time 32 min Disposition: -01 TO HOME OR SELFCARE Time spent for discharge: 32 - Discharge Diagnoses (1) Bacteremia Status: Acute (2) Ureteral stone with hydronephrosis Status: Acute (3) Acute renal insufficiency Status: Acute (4) Lactic acid acidosis Status: Acute (5) Sepsis Status: Acute (6) Thrombocytopenia Status: Acute (7) UTI (urinary tract infection) Status: Acute Core Measure Documentation - Palliative Care Palliative Care/ Comfort Measures: Not Applicable - Core Measures Any of the following diagnoses?: none Exam - Constitutional Vitals: Temp Pulse Resp BP Pulse Ox 99.3 F 72 20 132/61 96 10/04/17 06:27 10/04/17 06:27 10/04/17 06:27 10/04/17 06:27 10/04/17 06:27 General appearance: Present: no acute distress, well-nourished - EENT Eyes: Present: PERRL ENT: hearing intact, clear oral mucosa - Neck Neck: Present: supple, normal ROM - Respiratory Respiratory effort: normal Respiratory: bilateral: CTA - Cardiovascular Heart Sounds: Present: S1 & S2. Absent: rub, click - Extremities Extremities: pulses symmetrical, No edema Peripheral Pulses: within normal limits - Abdominal General gastrointestinal: Present: soft, non-tender, non-distended, normal bowel sounds Female genitourinary: Present: normal - Integumentary Integumentary: Present: clear, warm, dry - Musculoskeletal Musculoskeletal: gait normal, strength equal bilaterally - Psychiatric Psychiatric: appropriate mood/affect, intact judgment & insight - Neurologic Neurologic: CNII-XII intact, moves all extremities Plan Activity: no restrictions Weight Bearing Status: Full Weight Bearing Diet: regular Follow up with: PRIMARY CAREMD [Primary Care Provider] - 7 Days RENU GALAN MD [Staff Physician] - 7 Days Prescriptions: Ciprofloxacin HCl [Ciprofloxacin TAB] 500 mg PO Q12H #28 tab oxyCODONE /ACETAMINOPHEN [Percocet 5/325 mg] 1 tab PO Q6H PRN #20 tablet PRN Reason: Pain, Moderate (4-6)
[2017-10-04 13:46] VITALS: BP 124/48
[2017-10-04] MEDS: TYLENOL PO PRN (13:52)
--- NOTE | 2017-10-04 14:24 | Progress Note ---
Assessment and Plan Assessment: 1) Severe Sepsis: increasing leukocytosis. Etiology most likely E coli bacteremia and UTI. 2) Complicated UTI: Secondary to Escherichia coli. Patient with history of kidney stones, noted mild hydronephrosis on ultrasound. Escherichia coli is sensitive to ceftriaxone/levaquin. 3) E coli septicemia: from UTI -blood cx 09/27 E coli 4 of 4 bottles -blood cx 09/29 neg 4) RADHA: from sepsis - resolved 5) Thrombocytopenia: from sepsis - resolved Plan: -follow-up leukocytosis -continue ceftriaxone to 2 g IV qday -stop flagyl -upon discharge will do oral cipro 500 mg PO q12h total 14 days -urology f/u I am signing off Thank you for your consultation, will follow up with you. Roma Ward MD Infectious Diseases Specialist [facility] M [phone] O [phone] Subjective Date of service: 10/04/17 Principal diagnosis: UTI bacteremia Interval history: Feels better no fever x 48h Microbiology: Blood cultures: 09/27 E coli 4 of 4 bottles 09/29 neg Urine cultures: 09/27 E coli Respiratory cultures: Current Antimicrobials: Ceftriaxone Objective - Exam Narrative Exam: General appearance: Alert in NAD, conversant Eyes: anicteric sclerae, moist conjunctivae; no lid-lag; PERRLA HENT: Atraumatic; oropharynx clear with moist mucous membranes and no mucosal ulcerations/no oral thrush; normal hard and soft palate. Normal external ears. Neck: Trachea midline; supple, no thyromegaly or lymphadenopathy Lungs: CTA, with normal respiratory effort and no intercostal retractions CV: RRR, no murmurs Abdomen: Soft, non-tender; no masses or hepatosplenomegaly Extremities: No peripheral edema or extremity lymphadenopathy Skin: Normal temperature, turgor and texture; no rash, ulcers or subcutaneous nodules Psych: Appropriate affect, alert and oriented to person, place and time. Neuro: alert and oriented x 3. Moving all extermities Lines: No CVL / PICC - Constitutional Vitals: Vital Signs Temp Pulse Resp BP Pulse Ox 99.8 F H 87 18 124/48 94 10/04/17 13:43 10/04/17 13:43 10/04/17 13:43 10/04/17 13:43 10/04/17 13:43 Temperature -Last 24 Hours Temperature 99.8 F Temperature 99.3 F Temperature 99.2 F Temperature 99.5 F - Labs CBC & Chem 7: 10/04/17 09:15 10/04/17 09:15 Labs: Abnormal lab results 10/04/17 10/04/17 Range/Units 09:15 09:15 WBC 14.9 H (4.5-11.0) K/mm3 MCHC 35 H (30-34) % Lymph % (Auto) 10.2 L (13.4-35.0) % [facility] # 1.1 H (0.0-0.8) K/mm3 Seg Neutrophils % 81.9 H (40.0-70.0) % Seg Neutrophils # 12.2 H (1.8-7.7) K/mm3 Potassium 3.3 L (3.6-5.0) mmol/L Glucose 108 H (65-100) mg/dL Calcium 8.0 L (8.4-10.2) mg/dL
== END 2017-10-04 15:30 | disposition home or self-care (01) | DRG 872 ==
LOC: ED 18:12 → CC1 21:50 → IMCU 09-28 09:47 → 3A 09-28 12:51
PROVIDERS: ADMIT Internal Medicine; ATTEND Hospitalist
DX: A41.9 Sepsis, unspecified organism (principal); N17.9 Acute kidney failure, unspecified; D68.9 Coagulation defect, unspecified; N13.6 Pyonephrosis; E87.6 Hypokalemia; E83.42 Hypomagnesemia; D69.6 Thrombocytopenia, unspecified; Z82.49 Family history of ischemic heart disease and other diseases of the circulatory system; R65.20 Severe sepsis without septic shock; B96.20 Unspecified Escherichia coli [E. coli] as the cause of diseases classified elsewhere
CPT/HCPCS: 36415; 71045; 71046; 74176; 76770; 80048; 80053; 80307; 81001; 82140; 82550; 82805; 82962; 83735; 84439; 84443; 85007; 85025; 85610; 85730; 87040; 87076; 87086; 87186; 93005; 93010; J0696; J1644; J2405; J2543; J3475; J3480; J7030; J7040